=== PATIENT | female | born 1940 | race Caucasian/White ===

== ENCOUNTER 2018-05-16 19:10 | Emergency (ER) | payer MEDICARE, OTHER ==
[2018-05-16 19:58] VITALS: BP 167/72
--- NOTE | 2018-05-16 20:10 | EDM.PDOC ---
ED HPI GENERAL MEDICAL PROBLEM - General Chief Complaint: Abdominal Pain Stated Complaint: R SIDE ABD PAIN Time Seen by Provider: 05/16/18 19:25 Source of Information: Reports: Patient, Family History Limitations: Reports: No Limitations - History of Present Illness INITIAL COMMENTS - FREE TEXT/NARRATIVE: Patient presents with complaints of RLQ pain. Describes as a dull ache like "twinges of pain every now and then". Patient has had the pain for about 4 hours now. No nausea or vomiting. No fevers that she is aware of. Was able to eat today. Has had 2 normal BMs today. No blood in stool. No urinary complaints. Was in for blood work this am for her diabetes, had a panel 8 and A1C. Had travelled to [place] and [place] after that and had felt fine but this afternoon, had these mild episodes of pain and was worried about her appendix. Onset: Today, Gradual Duration: Day(s): Location: Reports: Abdomen Quality: Reports: Ache, Dull Severity: Mild Improves with: Reports: None Associated Symptoms: Reports: Nausea/Vomiting. Denies: Chest Pain, Cough, Fever /Chills, Loss of Appetite, Shortness of Breath, Syncope, Weakness Right Abdomen Pain Score (Numeric/FACES): 3 - Related Data Allergies Allergy/AdvReac Type Severity Reaction Status Date / Time aspirin Allergy Unknown Other Verified 05/16/18 19:58 Penicillins Allergy rapid Verified 05/16/18 19:58 heart rate Home Meds: Home Meds Aspirin [Mini Chewable Aspirin] 81 mg PO DAILY 07/24/13 [History] Cholecalciferol (Vitamin D3) [D3-2000] 2,000 unit PO DAILY 07/24/13 [History] Diltiazem HCl [Diltiazem 24Hr ER] 2 cap PO ACBREAKFAST 07/24/13 [History] Furosemide [Lasix] 40 mg PO DAILY 07/24/13 [History] Levothyroxine Sodium [Synthroid] 100 mcg PO DAILY 07/24/13 [History] atorvaSTATin [Lipitor] 80 mg PO DAILY 07/24/13 [History] metFORMIN HCl [Metformin HCl] 500 mg PO BID 07/24/13 [History] Pantoprazole [Protonix] 40 mg PO DAILY #30 tab.cr 07/26/13 [Rx] Multivit-Min/FA/Lycopene/Lut [Centrum Silver] 1 each PO DAILY 12/06/13 [History] Brimonidine Tartrate [Alphagan P 0.1% Ophth Soln] 1 drop EYEBOTH DAILY 05/04/16 [History] Digoxin 125 mcg PO DAILY 05/04/16 [History] Enalapril [Vasotec] 5 mg PO DAILY 05/04/16 [History] Ketorolac [Acular 0.5% Ophth Soln] 1 drop EYELF ASDIRECTED 05/04/16 [History] Moxifloxacin [Vigamox 0.5% Ophth Soln] 1 drop EYELF ASDIRECTED 05/04/16 [History ] Nitroglycerin [IJP: Nitroglycerin] 1 tab SL ASDIRECTED PRN 05/04/16 [History] prednisoLONE Acetate [Pred Forte 1% Ophth Susp] 1 drop EYELF ASDIRECTED [History] Past Medical History HEENT History: Reports: Cataract, Glaucoma Cardiovascular History: Reports: Angina, Bypass, High Cholesterol, Hypertension , Other (See Below) Other Cardiovascular History: SVT SUPRAVENTICULAR TACHYCARDIA Respiratory History: Reports: None Genitourinary History: Reports: Other (See Below) Other Genitourinary History: URINARY FREQUENCY Musculoskeletal History: Reports: Arthritis, Other (See Below) Other Musculoskeletal History: BURSITIS OF HAND LEFT & RIGHT, KNEE BILAT Psychiatric History: Reports: None Endocrine/Metabolic History: Reports: Diabetes, Type II, Hypothyroidism, Osteopenia, Vitamin D Deficiency Hematologic History: Reports: None Immunologic History: Reports: None Oncologic (Cancer) History: Reports: None Dermatologic History: Reports: None - Infectious Disease History Infectious Disease History: Reports: Chicken Pox, Measles, Mumps, Shingles, Other (See Below) Other Infectious Disease History: PINK EYE - Past Surgical History HEENT Surgical History: Reports: Cataract Surgery Social & Family History - Family History HEENT: Reports: None Cardiac: Reports: None Respiratory: Reports: COPD, Sleep Apnea GI: Reports: Other (See Below) Other GI Family History: LIVER FAILURE : Reports: None OBGYN: Reports: Musculoskeletal: Reports: Arthritis Neurological: Reports: None Psychiatric: Reports: None Endocrine/Metabolic: Reports: None Hematologic: Reports: None Immunologic: Reports: None Dermatologic: Reports: None Oncologic: Reports: Colon, Esophageal, Liver - Caffeine Use Caffeine Use: Reports: Coffee Caffeine Use Comment: AVERAGES 2-3 ED ROS GENERAL - Review of Systems Review Of Systems: See Below Constitutional: Denies: Fever, Chills, Malaise, Weakness, Decreased Appetite HEENT: Reports: No Symptoms Respiratory: Denies: Shortness of Breath, Cough Cardiovascular: Denies: Chest Pain, Edema, Lightheadedness Endocrine: Denies: Fatigue GI/Abdominal: Reports: Abdominal Pain, Nausea. Denies: Constipation, Diarrhea, Decreased Appetite, Vomiting : Reports: No Symptoms Musculoskeletal: Reports: No Symptoms Skin: Reports: No Symptoms Neurological: Reports: No Symptoms ED EXAM, GI/ABD - Physical Exam Exam: See Below Exam Limited By: No Limitations General Appearance: Alert, WD/WN, No Apparent Distress Ears: Normal External Exam, Normal TMs Nose: Normal Inspection, Normal Mucosa, No Blood Throat/Mouth: Normal Inspection, Normal Oropharynx Head: Normocephalic Neck: Normal Inspection, Supple, Non-Tender Respiratory/Chest: No Respiratory Distress, Lungs Clear, Normal Breath Sounds Cardiovascular: Regular Rate, Rhythm, No Edema GI/Abdominal Exam: Normal Bowel Sounds, Soft, Tender (RLQ) Extremities: Normal Inspection Neurological: Alert, Oriented Skin Exam: Warm, Dry Course - Vital Signs Last Recorded V/S: Last Vital Signs Temp 99.1 F 05/16/18 19:55 Pulse 69 05/16/18 19:55 Resp 18 05/16/18 19:55 BP 167/72 H 05/16/18 19:55 Pulse Ox 97 05/16/18 19:55 - Orders/Labs/Meds Orders: Active Orders 24 hr Category Date Time Status Abdomen 2V AP Flat Upright [CR] Routine Exams 05/16/18 20:12 Taken CULTURE URINE [RM] Stat Lab 05/16/18 20:35 Ordered Labs: Laboratory Tests 05/16/18 05/16/18 05/16/18 Range/Units 19:55 19:55 19:55 WBC 9.8 (5.0-10.0) 10^3/uL RBC 3.82 L (4.00-5.50) 10^6/uL Hgb 11.6 L (12.0-16.0) g/dL Hct 35.8 L (37.0-47.0) % MCV 93.7 (82.0-94.0) fL MCH 30.4 (27.0-32.0) pg MCHC 32.4 L (33.0-38.0) g/dL RDW Coeff of Jeff 13.5 (11.0-15.0) % Plt Count 269 (150-400) 10^3/uL Neut % (Auto) 64.4 (35-85) % Lymph % (Auto) 25.4 (10-55) % [place] % (Auto) 8.1 (0-16) % Eos % (Auto) 1.7 (0-5) % Baso % (Auto) 0.4 (0-3) % Neut # (Auto) 6.29 (1.80-7.00) 10^3/uL Lymph # (Auto) 2.48 (1.00-4.80) 10^3/uL [place] # (Auto) 0.79 (0.00-0.80) 10^3/uL Eos # (Auto) 0.17 (0.00-0.45) 10^3/uL Baso # (Auto) 0.04 10^3/uL Sodium 140 (136-145) mEq/L Potassium 4.4 (3.5-5.0) mEq/L Chloride 102 (98-106) mEq/L Carbon Dioxide 31 (21-32) mmol/L BUN 31 H (7-18) mg/dL Creatinine 2.1 H (0.6-1.0) mg/dL Est Cr Clr Drug Dosing 16.11 mL/min Estimated GFR (MDRD) 23 L (>=60) mL/min Glucose 214 H (75-99) mg/dL Calcium 9.4 (8.4-10.1) mg/dL Total Bilirubin 0.2 (0.0-1.0) mg/dL AST 14 L (15-37) U/L ALT 23 (12-78) U/L Alkaline Phosphatase 106 (46-116) U/L C-Reactive Protein 1.3 H (0.2-0.8) mg/dL Total Protein 7.1 (6.4-8.2) g/dL Albumin 3.5 (3.4-5.0) g/dL Amylase 26 (25-115) U/L Urine Color (YELLOW) Urine Appearance (CLEAR) Urine pH (4.5-8.0) Ur Specific [place] (1.003-1.020) Urine Protein (NEGATIVE) mg/dL Urine Glucose (UA) (NEGATIVE) mg/dL Urine Ketones (NEGATIVE) mg/dL Urine Occult Blood (NEGATIVE) Urine Nitrite (NEGATIVE) Urine Bilirubin (NEGATIVE) Urine Urobilinogen (0.2-1.0) EU/dL Ur Leukocyte Esterase (NEGATIVE) Urine RBC (0-5) /HPF Urine WBC (0-5) /HPF Ur Squamous Epith Cells (NOT SEEN) /HPF Urine Bacteria (NOT SEEN) /HPF 05/16/18 Range/Units 20:05 WBC (5.0-10.0) 10^3/uL RBC (4.00-5.50) 10^6/uL Hgb (12.0-16.0) g/dL Hct (37.0-47.0) % MCV (82.0-94.0) fL MCH (27.0-32.0) pg MCHC (33.0-38.0) g/dL RDW Coeff of Jeff (11.0-15.0) % Plt Count (150-400) 10^3/uL Neut % (Auto) (35-85) % Lymph % (Auto) (10-55) % [place] % (Auto) (0-16) % Eos % (Auto) (0-5) % Baso % (Auto) (0-3) % Neut # (Auto) (1.80-7.00) 10^3/uL Lymph # (Auto) (1.00-4.80) 10^3/uL [place] # (Auto) (0.00-0.80) 10^3/uL Eos # (Auto) (0.00-0.45) 10^3/uL Baso # (Auto) 10^3/uL Sodium (136-145) mEq/L Potassium (3.5-5.0) mEq/L Chloride (98-106) mEq/L Carbon Dioxide (21-32) mmol/L BUN (7-18) mg/dL Creatinine (0.6-1.0) mg/dL Est Cr Clr Drug Dosing mL/min Estimated GFR (MDRD) (>=60) mL/min Glucose (75-99) mg/dL Calcium (8.4-10.1) mg/dL Total Bilirubin (0.0-1.0) mg/dL AST (15-37) U/L ALT (12-78) U/L Alkaline Phosphatase (46-116) U/L C-Reactive Protein (0.2-0.8) mg/dL Total Protein (6.4-8.2) g/dL Albumin (3.4-5.0) g/dL Amylase (25-115) U/L Urine Color Light yellow (YELLOW) Urine Appearance Clear (CLEAR) Urine pH 8.5 H (4.5-8.0) Ur Specific [place] 1.015 (1.003-1.020) Urine Protein 30 H (NEGATIVE) mg/dL Urine Glucose (UA) Negative (NEGATIVE) mg/dL Urine Ketones Negative (NEGATIVE) mg/dL Urine Occult Blood Trace-intact H (NEGATIVE) Urine Nitrite Negative (NEGATIVE) Urine Bilirubin Negative (NEGATIVE) Urine Urobilinogen 0.2 (0.2-1.0) EU/dL Ur Leukocyte Esterase Trace H (NEGATIVE) Urine RBC 0-5 (0-5) /HPF Urine WBC 5-10 H (0-5) /HPF Ur Squamous Epith Cells Few H (NOT SEEN) /HPF Urine Bacteria Few H (NOT SEEN) /HPF - Re-Assessments/Exams Free Text/Narrative Re-Assessment/Exam: 05/16/18 Lab tests show normal WBC. Mild elevation of CRP at 1.2. Creatinine 2.1, normal 1.8. UA does show few bacteria, no urinary symptoms. Will culture urine and determine tomorrow if treatment is needed. She does have moderate stool in the right colon. Pain at a minimum right now. Discussed need to push fluids, take colace tonight. Return if pain worsens or if she starts running a fever, gets nauseated, etc. Her and her agree to plan Departure - Departure Time of Disposition: 20:41 Disposition: Home, Self-Care 01 Condition: Fair Clinical Impression: Abdominal pain Qualifiers: Abdominal location: right lower quadrant Qualified Code(s): R10.31 - Right lower quadrant pain - Discharge Information *PRESCRIPTION DRUG MONITORING PROGRAM REVIEWED*: No *COPY OF PRESCRIPTION DRUG MONITORING REPORT IN PATIENT LADI: No Referrals: Jenna Winkler ENGINEERING LAB TECHNICIAN [Primary Care Provider] - Forms: ED Department Discharge Additional Instructions: 1. Push fluids 2. Stool softener tonight 3. Return if develop fever, increased pain, nausea or vomiting. 4. We will call you if concerns with the urine culture and if treated needed for a urinary tract infection 5. Call with any questions or concerns. - My Orders Last 24 Hours: My Active Orders 05/16/18 20:12 Abdomen 2V AP Flat Upright [CR] Routine 05/16/18 20:35 CULTURE URINE [RM] Stat - Assessment/Plan Last 24 Hours: My Active Orders 05/16/18 20:12 Abdomen 2V AP Flat Upright [CR] Routine 05/16/18 20:35 CULTURE URINE [RM] Stat
== END 2018-05-16 21:00 | disposition home or self-care (01) ==
LOC: CC.ED 19:10
DX: R10.31 Right lower quadrant pain (principal); I25.10 Atherosclerotic heart disease of native coronary artery without angina pectoris; I10 Essential (primary) hypertension; E78.00 Pure hypercholesterolemia, unspecified; E11.9 Type 2 diabetes mellitus without complications; E03.9 Hypothyroidism, unspecified; R79.89 Other specified abnormal findings of blood chemistry; Z88.8 Allergy status to other drugs, medicaments and biological substances; Z88.0 Allergy status to penicillin; Z79.899 Other long term (current) drug therapy; Z79.84 Long term (current) use of oral hypoglycemic drugs; Z87.891 Personal history of nicotine dependence
CPT/HCPCS: 36415; 74019; 80053; 81001; 82150; 85025; 86140; 87086; 99284

== ENCOUNTER 2019-11-10 19:03 | Observation (INO) | payer MEDICARE, OTHER ==
[2019-11-10] MEDS ORDERED: Ondansetron 4 MG/2 ML SDV IVPUSH STA (19:11)
--- NOTE | 2019-11-10 19:17 | EDM.PDOC ---
ED HPI GENERAL MEDICAL PROBLEM - General Chief Complaint: Gastrointestinal Problem Stated Complaint: nausea/vomiting Time Seen by Provider: 11/10/19 19:09 Source of Information: Reports: Patient History Limitations: Reports: No Limitations - History of Present Illness INITIAL COMMENTS - FREE TEXT/NARRATIVE: This patient is a 79 year old female that presents to the ER. Patient reports started today at noon after eating having upper abdominal pain, nausea, vomiting , and dizziness with positional changes. Patient reports that she has vomited 8x today. Patient reports she has also been generally weak since vomiting today. Patient is alert and oriented. She denies vomiting blood or blood in bowels. Onset: Today Onset Date: 11/10/19 Onset Time: 12:00 Duration: Hour(s): (7) Location: Reports: Abdomen Quality: Reports: Ache Severity: Moderate Improves with: Reports: None Worsens with: Reports: None Associated Symptoms: Reports: Loss of Appetite, Nausea/Vomiting, Weakness ( general). Denies: Confusion, Chest Pain, Cough, cough w sputum, Diaphoresis, Fever/Chills, Headaches, Malaise, Rash, Seizure, Shortness of Breath, Syncope - Related Data Allergies Allergy/AdvReac Type Severity Reaction Status Date / Time aspirin Allergy Unknown Other Verified 11/10/19 19:11 Penicillins Allergy rapid Verified 11/10/19 19:11 heart rate Home Meds: Home Meds Aspirin [Mini Chewable Aspirin] 81 mg PO DAILY 07/24/13 [History] Cholecalciferol (Vitamin D3) [D3-2000] 2,000 unit PO DAILY 07/24/13 [History] Furosemide [Lasix] 40 mg PO DAILY 07/24/13 [History] Levothyroxine Sodium [Synthroid] 100 mcg PO DAILY 07/24/13 [History] atorvaSTATin [Lipitor] 80 mg PO BEDTIME 07/24/13 [History] dilTIAZem HCl [Diltiazem 24Hr ER (Cd)] 180 mg PO BID 07/24/13 [History] Multivit-Min/FA/Lycopene/Lut [Centrum Silver] 1 each PO DAILY 12/06/13 [History] Brimonidine Tartrate [Alphagan P 0.1% Ophth Soln] 1 drop EYEBOTH BID 05/04/16 [ History] Digoxin 125 mcg PO DAILY 05/04/16 [History] Enalapril [Vasotec] 5 mg PO BEDTIME 05/04/16 [History] Ketorolac [Acular 0.5% Ophth Soln] 1 drop EYELF ASDIRECTED 05/04/16 [History] Moxifloxacin [Vigamox 0.5% Ophth Soln] 1 drop EYELF BID 05/04/16 [History] Nitroglycerin [IJP: Nitroglycerin] 1 tab SL ASDIRECTED PRN 05/04/16 [History] prednisoLONE Acetate [Pred Forte 1% Ophth Susp] 1 drop EYELF BID 05/04/16 [ History] SitaGLIPtin [Januvia] 100 mg PO BEDTIME 11/10/19 [History] Past Medical History HEENT History: Reports: Cataract, Glaucoma Cardiovascular History: Reports: Angina, Bypass, High Cholesterol, Hypertension , Other (See Below) Other Cardiovascular History: SVT SUPRAVENTICULAR TACHYCARDIA Respiratory History: Reports: None Genitourinary History: Reports: Other (See Below) Other Genitourinary History: URINARY FREQUENCY Musculoskeletal History: Reports: Arthritis, Other (See Below) Other Musculoskeletal History: BURSITIS OF HAND LEFT & RIGHT, KNEE BILAT Psychiatric History: Reports: None Endocrine/Metabolic History: Reports: Diabetes, Type II, Hypothyroidism, Osteopenia, Vitamin D Deficiency Hematologic History: Reports: None Immunologic History: Reports: None Oncologic (Cancer) History: Reports: None Dermatologic History: Reports: None - Infectious Disease History Infectious Disease History: Reports: Chicken Pox, Measles, Mumps, Shingles, Other (See Below) Other Infectious Disease History: PINK EYE - Past Surgical History HEENT Surgical History: Reports: Cataract Surgery Social & Family History - Family History HEENT: Reports: None Cardiac: Reports: None Respiratory: Reports: COPD, Sleep Apnea GI: Reports: Other (See Below) Other GI Family History: LIVER FAILURE : Reports: None OBGYN: Reports: Musculoskeletal: Reports: Arthritis Neurological: Reports: None Psychiatric: Reports: None Endocrine/Metabolic: Reports: None Hematologic: Reports: None Immunologic: Reports: None Dermatologic: Reports: None Oncologic: Reports: Colon, Esophageal, Liver - Caffeine Use Caffeine Use: Reports: Coffee Caffeine Use Comment: AVERAGES 2-3 ED ROS GENERAL - Review of Systems Review Of Systems: See Below Constitutional: Reports: Weakness (general). Denies: Fever, Chills HEENT: Reports: No Symptoms Respiratory: Reports: No Symptoms Cardiovascular: Reports: Lightheadedness. Denies: Chest Pain, Dyspnea on Exertion, Edema, Palpitations, Syncope Endocrine: Reports: No Symptoms GI/Abdominal: Reports: Abdominal Pain, Nausea, Vomiting. Denies: Diarrhea : Reports: No Symptoms Musculoskeletal: Reports: No Symptoms Skin: Reports: No Symptoms Neurological: Reports: No Symptoms. Denies: Headache, Syncope Psychiatric: Reports: No Symptoms Hematologic/Lymphatic: Reports: No Symptoms Immunologic: Reports: No Symptoms ED EXAM, GI/ABD - Physical Exam Exam: See Below Exam Limited By: No Limitations General Appearance: Alert, WD/WN, No Apparent Distress Eyes: Bilateral: Normal Appearance Ears: Normal External Exam, Normal Canal, Hearing Grossly Normal, Normal TMs Nose: Normal Inspection, Normal Mucosa, No Blood Throat/Mouth: Normal Inspection, Normal Lips, Normal Teeth, Normal Gums, Normal Oropharynx, Normal Voice, No Airway Compromise Head: Atraumatic, Normocephalic Neck: Normal Inspection, Supple, Non-Tender, Full Range of Motion Respiratory/Chest: No Respiratory Distress, Lungs Clear, Normal Breath Sounds, No Accessory Muscle Use, Chest Non-Tender Cardiovascular: Normal Peripheral Pulses, Irregularly Irregular GI/Abdominal Exam: Normal Bowel Sounds, Soft, No Organomegaly, No Distention, No Abnormal Bruit, No Mass, Pelvis Stable, Tender (RUQ, LUQ, Epigastric) Back Exam: Normal Inspection, Full Range of Motion. No: CVA Tenderness (L), CVA Tenderness (R) Extremities: Normal Inspection, Normal Capillary Refill, Pedal Edema (+1 BLE. Hx CHF.) Neurological: Alert, Oriented, Normal Cognition Psychiatric: Normal Affect, Normal Mood Skin Exam: Warm, Dry, Intact, Normal Color, No Rash Lymphatic: No Adenopathy EKG INTERPRETATION EKG Date: 11/10/19 Time: 19:35 Rhythm: A-Fib Rate (Beats/Min): 72 ST-T: Normal Course - Vital Signs Last Recorded V/S: Last Vital Signs Temp 97.6 F 11/11/19 07:57 Pulse 76 11/11/19 07:57 Resp 18 11/11/19 07:57 BP 151/59 H 11/11/19 09:41 Pulse Ox 97 11/11/19 07:57 Orthostatic Blood Pressure [ 153/81 Standing] Orthostatic Blood Pressure [ 165/66 Sitting] Orthostatic Blood Pressure [ 145/61 Supine] - Orders/Labs/Meds Labs: Laboratory Tests 11/10/19 11/10/19 11/10/19 Range/Units 19:15 19:15 20:05 WBC 14.0 H (5.0-10.0) 10^3/uL RBC 4.16 (4.00-5.50) 10^6/uL Hgb 13.2 (12.0-16.0) g/dL Hct 39.7 (37.0-47.0) % MCV 95.4 H (82.0-94.0) fL MCH 31.7 (27.0-32.0) pg MCHC 33.2 (33.0-38.0) g/dL RDW Coeff of Jeff 13.5 (11.0-15.0) % Plt Count 271 (150-400) 10^3/uL Neut % (Auto) 78.8 (35-85) % Lymph % (Auto) 13.5 (10-55) % [place] % (Auto) 6.8 (0-16) % Eos % (Auto) 0.6 (0-5) % Baso % (Auto) 0.3 (0-3) % Neut # (Auto) 11.06 H (1.80-7.00) 10^3/uL Lymph # (Auto) 1.89 (1.00-4.80) 10^3/uL [place] # (Auto) 0.96 H (0.00-0.80) 10^3/uL Eos # (Auto) 0.09 (0.00-0.45) 10^3/uL Baso # (Auto) 0.04 10^3/uL Sodium 138 (136-145) mEq/L Potassium 4.0 (3.5-5.0) mEq/L Chloride 97 L (98-106) mEq/L Carbon Dioxide 29 (21-32) mmol/L BUN 34 H (7-18) mg/dL Creatinine 1.9 H (0.6-1.0) mg/dL Est Cr Clr Drug Dosing 17.24 mL/min Estimated GFR (MDRD) 26 L (>=60) mL/min Glucose 248 H (75-99) mg/dL Calcium 10.0 (8.4-10.1) mg/dL Total Bilirubin 0.3 (0.0-1.0) mg/dL AST 12 L (15-37) U/L ALT 20 (12-78) U/L Alkaline Phosphatase 98 (46-116) U/L Lactate Dehydrogenase 175 (100-190) U/L Creatine Kinase 40 (21-215) U/L Troponin I < 0.017 (0.00-0.06) ng/mL C-Reactive Protein 2.4 H (0.2-0.8) mg/dL NT-Pro-B Natriuret Pep 3774 H (0-1000) pg/mL Total Protein 7.8 (6.4-8.2) g/dL Albumin 3.5 (3.4-5.0) g/dL Amylase 25 (25-115) U/L Lipase 104 (73-393) U/L Urine Color Light yellow (YELLOW) Urine Appearance Slightly cloudy (CLEAR) Urine pH 7.0 (4.5-8.0) Ur Specific [place] >= 1.030 H (1.003-1.020) Urine Protein >=300 H (NEGATIVE) mg/dL Urine Glucose (UA) 100 H (NEGATIVE) mg/dL Urine Ketones Negative (NEGATIVE) mg/dL Urine Occult Blood Trace-intact H (NEGATIVE) Urine Nitrite Negative (NEGATIVE) Urine Bilirubin Negative (NEGATIVE) Urine Urobilinogen 0.2 (0.2-1.0) EU/dL Ur Leukocyte Esterase Negative (NEGATIVE) Urine RBC 0-5 (0-5) /HPF Urine WBC 0-5 (0-5) /HPF Ur Epithelial Cells Moderate H (NOT SEEN) /HPF Urine Bacteria Occasional H (NOT SEEN) /HPF Urine Mucus Few H (NOT SEEN) /HPF Meds: Medications Discontinued Medications Generic Name Dose Route Start Last Admin Trade Name Freq PRN Reason Stop Dose Admin Aspirin 81 mg 11/11/19 08:15 11/11/19 08:55 Halfprin PO 81 mg DAILY [facility] Administration Cholecalciferol 50 mcg 11/11/19 08:15 11/11/19 08:55 Vitamin D3 PO 50 mcg DAILY KAI Administration Digoxin 125 mcg 11/11/19 12:00 Lanoxin PO DAILY@1200 [facility] Enalapril Maleate 5 mg 11/11/19 08:00 11/11/19 09:41 Vasotec PO 5 mg DAILY KAI Administration Enoxaparin Sodium 30 mg 11/10/19 21:49 11/10/19 22:19 Lovenox SUBCUT 30 mg BEDTIME KAI Administration Furosemide 40 mg 11/11/19 08:00 11/11/19 09:41 Lasix PO 40 mg DAILY KAI Administration Sodium Chloride 500 mls @ 1,000 mls/hr 11/10/19 19:15 11/10/19 21:56 Normal Saline IV 75 mls/hr .BOLUS KAI Administration Sodium Chloride 500 mls @ 75 mls/hr 11/10/19 21:49 Normal Saline IV 11/11/19 04:00 ASDIRECTED KAI Levothyroxine Sodium 100 mcg 11/11/19 08:00 11/11/19 09:41 Synthroid PO 100 mcg DAILY KAI Administration Nitroglycerin 0.4 mg 11/10/19 21:49 Nitrostat SL ASDIRECTED PRN ANGINA Atorvastatin [ 80 mg 11/11/19 08:00 11/11/19 09:41 Lipitor] 80 MgPt PO 80 mg Own DAILY KAI Administration Non-Formulary Medication 1 drop 11/11/19 08:00 Brimonidine Tartrate [Alphagan P 0.1% Ophth Soln] EYEBOTH BID KAI Diltiazem 180mg Xr 2 each 11/11/19 07:00 11/11/19 09:41 PO 2 each ACBREAKFAST KAI Administration Non-Formulary Medication 1 drop 11/10/19 21:49 Ketorolac EYELF ASDIRECTED KAI Non-Formulary Medication 1 drop 11/11/19 08:00 Moxifloxacin [Vigamox 0.5% Ophth Soln] EYELF BID KAI Non-Formulary Medication 1 each 11/11/19 08:00 Multivit-Min/Fa/Lycopene/Lut [Centrum Silver] PO DAILY KAI Non-Formulary Medication 40 mg 11/11/19 08:00 Pantoprazole [Protonix] PO DAILY KAI Non-Formulary Medication 1 drop 11/11/19 08:00 Prednisolone Acetate [Pred Forte 1% Ophth Susp] EYELF BID KAI Sitagliptin 100 Mg 100 mg 11/11/19 08:00 11/11/19 09:41 Pt Own PO 100 mg DAILY KAI Administration Ondansetron HCl 4 mg 11/10/19 19:11 11/10/19 19:20 Zofran IVPUSH 11/10/19 19:12 4 mg NOW STA Administration Ondansetron HCl 4 mg 11/10/19 20:36 11/10/19 20:41 Zofran IVPUSH 4 mg STAT PRN Administration Nausea Ondansetron HCl 4 mg 11/10/19 21:49 Zofran IV Q6H PRN Nausea/Vomiting Pantoprazole Sodium 40 mg 11/10/19 21:49 11/10/19 22:19 Protonix Iv IVPUSH 11/10/19 21:50 40 mg ONETIME ONE Administration - Radiology Interpretation Free Text/Narrative:: CT: Abd/Pelvis CT without contrast: No clear etiology for abdominal pain or leukocytosis. CT Results Date: 11/10/19 CT Results Time: 20:33 - Re-Assessments/Exams Free Text/Narrative Re-Assessment/Exam: 11/10/19 21:07 The patient does have mild leukocytosis, possibly viral etiology and with her vomiting. She has no fever, and unremarkable ct scan. She is dehydrated, especially with dizziness with positional changes and during orthostatics. Will admit observation, repeat labs tomorrow to ensure no significant increase in her wbc, or drop in hgb. Departure - Departure Time of Disposition: 21:09 Disposition: DC/Tfer to Acute Hospital 02 Condition: Fair Clinical Impression: Dizziness, Viral enteritis, Renal insufficiency - Discharge Information *PRESCRIPTION DRUG MONITORING PROGRAM REVIEWED*: Not Applicable *COPY OF PRESCRIPTION DRUG MONITORING REPORT IN PATIENT LADI: Not Applicable Sepsis Event Note - Focused Exam Date Exam was Performed: 11/12/19 Time Exam was Performed: 01:16 - Assessment/Plan Plan: PLEASE SEE RN NOTE FOR PFSH. PLEASE USE ER H&P ADMIT H&P
[2019-11-10] MEDS: Sodium Chloride 0.9% 500 ML IV SCH ×2 (19:21→21:56)
[2019-11-10 19:43] LABS: CHLORIDE,CL 97 mEq/L (98-106); SODIUM,NA 138 mEq/L (136-145)
[2019-11-10] MEDS ORDERED: Ondansetron 4 MG/2 ML SDV IVPUSH PRN (20:36)
[2019-11-10] MEDS ORDERED: Nitroglycerin 0.4 MG Tab.SL SL PRN (21:49)
[2019-11-10] MEDS ORDERED: KETOROLAC EYELF SCH (21:49)
[2019-11-10] MEDS ORDERED: Ondansetron 4 MG/2 ML SDV IV PRN (21:49)
[2019-11-10] MEDS ORDERED: Pantoprazole 40 MG Vial IVPUSH ONE (21:49)
[2019-11-10] MEDS ORDERED: Sodium Chloride 0.9% 500 ML IV SCH (21:49)
[2019-11-10] MEDS ORDERED: Enoxaparin 30 MG/0.3 ML Syringe SUBCUT SCH (21:49)
[2019-11-11] MEDS ORDERED: DILTIAZEM 180 MG PO SCH (07:00)
[2019-11-11 07:59] VITALS: BP 151/59; PULSE 76
[2019-11-11] MEDS ORDERED: ATORVASTATIN 80 MG PO SCH (08:00)
[2019-11-11] MEDS ORDERED: [UNRECOGNIZED DRUG - OTHER] PO SCH (08:00)
[2019-11-11] MEDS ORDERED: Non-Formulary Medication 1 Each (Moxifloxacin [Vigamox 0.5% Ophth Soln] 1 DROP) EYELF SCH (08:00)
[2019-11-11] MEDS ORDERED: LYCOPENE PO SCH (08:00)
[2019-11-11] MEDS ORDERED: LUT PO SCH (08:00)
[2019-11-11] MEDS ORDERED: Non-Formulary Medication 1 Each (Pantoprazole [Protonix***] 40 MG) PO SCH (08:00)
[2019-11-11] MEDS ORDERED: ENALAPRIL 5 MG PO SCH (08:00)
[2019-11-11] MEDS ORDERED: Furosemide 40 MG Tab**PT OWN PO SCH (08:00)
[2019-11-11] MEDS ORDERED: MULTIVIT MIN PO SCH (08:00)
[2019-11-11] MEDS ORDERED: BRIMONIDINE TARTRATE EYEBOTH SCH (08:00)
[2019-11-11] MEDS ORDERED: SITAGLIPTIN 100 MG PO SCH (08:00)
[2019-11-11] MEDS ORDERED: Levothyroxine 100 MCG Tab**PT OWN PO SCH (08:00)
[2019-11-11] MEDS ORDERED: PREDNISOLONE ACETATE EYELF SCH (08:00)
[2019-11-11] MEDS ORDERED: Cholecalciferol (Vitamin D3) 25 MCG Tab PO SCH (08:15)
[2019-11-11] MEDS ORDERED: Aspirin 81 MG Tab.EC PO SCH (08:15)
--- NOTE | 2019-11-11 08:56 | PCM.DCSUM1 ---
Discharge Summary - Hospital Course HPI Initial Comments: This patient was admitted last night with enteritis and dehydration. Today this patient reports that she has her energy back, no longer dizzy. She reports that she has not had any nausea or vomiting today. She reports that she feels much better and is ready to go home. Her CR is 1.8, consistent with baseline. Her WBC is down to 10, and her CRP as decreased. I will discharge this patient home. - Discharge Data Discharge Date: 11/11/19 Discharge Disposition: Home, Self-Care 01 Condition: Stable - Referral to Home Health Primary Care Physician: Jenna Winkler NP - Patient Instructions Diet: Usual Diet as Tolerated Activity: As Tolerated Driving: Do Not Drive Notify Provider of: Fever, Increased Pain, Nausea and/or Vomiting Other/Special Instructions: Followup with primary care provider in 3-5 days for recheck and med reconcile. Return as needed for worsening of condition or emergent concerns. Zofran 4mg under the tongue every 6 hours as needed for nausea or vomiting #30 no refill - Discharge Plan *PRESCRIPTION DRUG MONITORING PROGRAM REVIEWED*: Not Applicable *COPY OF PRESCRIPTION DRUG MONITORING REPORT IN PATIENT LADI: Not Applicable Home Medications: Home Meds Aspirin [Mini Chewable Aspirin] 81 mg PO DAILY 07/24/13 [History] Cholecalciferol (Vitamin D3) [D3-2000] 2,000 unit PO DAILY 07/24/13 [History] Furosemide [Lasix] 40 mg PO DAILY 07/24/13 [History] Levothyroxine Sodium [Synthroid] 100 mcg PO DAILY 07/24/13 [History] atorvaSTATin [Lipitor] 80 mg PO DAILY 07/24/13 [History] dilTIAZem HCl [Diltiazem 24Hr ER (Cd)] 2 cap PO ACBREAKFAST 07/24/13 [History] Pantoprazole [ProTONIX] 40 mg PO DAILY #30 tab.cr 07/26/13 [Rx] Multivit-Min/FA/Lycopene/Lut [Centrum Silver] 1 each PO DAILY 12/06/13 [History] Brimonidine Tartrate [Alphagan P 0.1% Ophth Soln] 1 drop EYEBOTH BID 05/04/16 [ History] Digoxin 125 mcg PO DAILY 05/04/16 [History] Enalapril [Vasotec] 5 mg PO DAILY 05/04/16 [History] Ketorolac [Acular 0.5% Ophth Soln] 1 drop EYELF ASDIRECTED 05/04/16 [History] Moxifloxacin [Vigamox 0.5% Ophth Soln] 1 drop EYELF BID 05/04/16 [History] Nitroglycerin [IJP: Nitroglycerin] 1 tab SL ASDIRECTED PRN 05/04/16 [History] prednisoLONE Acetate [Pred Forte 1% Ophth Susp] 1 drop EYELF BID 05/04/16 [ History] SitaGLIPtin [Januvia] 100 mg PO DAILY 11/10/19 [History] Patient Handouts: Viral Gastroenteritis, Adult, Slfj-go-[id number], Dizziness, Easy- to-Read Forms: ED Department Discharge Referrals: Jenna Winkler COMPOUND SPECIALIST [Primary Care Provider] - - Discharge Summary/Plan Comment DC Time >30 min.: No - General Info Functional Status: Reports: Pain Controlled, Tolerating Diet, Ambulating, Urinating - Review of Systems General: Reports: No Symptoms. Denies: Weakness HEENT: Reports: No Symptoms Pulmonary: Reports: No Symptoms. Denies: Shortness of Breath Cardiovascular: Reports: No Symptoms Gastrointestinal: Reports: No Symptoms. Denies: Abdominal Pain, Diarrhea, Nausea, Vomiting Genitourinary: Reports: No Symptoms Musculoskeletal: Reports: No Symptoms Skin: Reports: No Symptoms Neurological: Reports: No Symptoms. Denies: Dizziness, Headache Psychiatric: Reports: No Symptoms - Patient Data Vitals - Most Recent: Last Vital Signs Temp 97.6 F 11/11/19 07:57 Pulse 76 11/11/19 07:57 Resp 18 11/11/19 07:57 BP 151/59 H 11/11/19 07:57 Pulse Ox 97 11/11/19 07:57 Orthostatic Blood Pressure [ 153/81 Standing] Orthostatic Blood Pressure [ 165/66 Sitting] Orthostatic Blood Pressure [ 145/61 Supine] Weight - Most Recent: 158 lb 1.6 oz I&O - Last 24 hours: Intake & Output 11/10/19 11/11/19 11/11/19 22:59 06:59 14:59 Intake Total 500 Balance 500 Lab Results - Last 24 hrs: Laboratory Results - last 24 hr 11/10/19 11/10/19 11/10/19 Range/Units 19:15 19:15 20:05 WBC 14.0 H (5.0-10.0) 10^3/uL RBC 4.16 (4.00-5.50) 10^6/uL Hgb 13.2 (12.0-16.0) g/dL Hct 39.7 (37.0-47.0) % MCV 95.4 H (82.0-94.0) fL MCH 31.7 (27.0-32.0) pg MCHC 33.2 (33.0-38.0) g/dL RDW Coeff of Jeff 13.5 (11.0-15.0) % Plt Count 271 (150-400) 10^3/uL Neut % (Auto) 78.8 (35-85) % Lymph % (Auto) 13.5 (10-55) % [place] % (Auto) 6.8 (0-16) % Eos % (Auto) 0.6 (0-5) % Baso % (Auto) 0.3 (0-3) % Neut # (Auto) 11.06 H (1.80-7.00) 10^3/uL Lymph # (Auto) 1.89 (1.00-4.80) 10^3/uL [place] # (Auto) 0.96 H (0.00-0.80) 10^3/uL Eos # (Auto) 0.09 (0.00-0.45) 10^3/uL Baso # (Auto) 0.04 10^3/uL Sodium 138 (136-145) mEq/L Potassium 4.0 (3.5-5.0) mEq/L Chloride 97 L (98-106) mEq/L Carbon Dioxide 29 (21-32) mmol/L BUN 34 H (7-18) mg/dL Creatinine 1.9 H (0.6-1.0) mg/dL Est Cr Clr Drug Dosing 17.24 mL/min Estimated GFR (MDRD) 26 L (>=60) mL/min Glucose 248 H (75-99) mg/dL Calcium 10.0 (8.4-10.1) mg/dL Total Bilirubin 0.3 (0.0-1.0) mg/dL AST 12 L (15-37) U/L ALT 20 (12-78) U/L Alkaline Phosphatase 98 (46-116) U/L Lactate Dehydrogenase 175 (100-190) U/L Creatine Kinase 40 (21-215) U/L Troponin I < 0.017 (0.00-0.06) ng/mL C-Reactive Protein 2.4 H (0.2-0.8) mg/dL NT-Pro-B Natriuret Pep 3774 H (0-1000) pg/mL Total Protein 7.8 (6.4-8.2) g/dL Albumin 3.5 (3.4-5.0) g/dL Amylase 25 (25-115) U/L Lipase 104 (73-393) U/L Urine Color Light yellow (YELLOW) Urine Appearance Slightly cloudy (CLEAR) Urine pH 7.0 (4.5-8.0) Ur Specific [place] >= 1.030 H (1.003-1.020) Urine Protein >=300 H (NEGATIVE) mg/dL Urine Glucose (UA) 100 H (NEGATIVE) mg/dL Urine Ketones Negative (NEGATIVE) mg/dL Urine Occult Blood Trace-intact H (NEGATIVE) Urine Nitrite Negative (NEGATIVE) Urine Bilirubin Negative (NEGATIVE) Urine Urobilinogen 0.2 (0.2-1.0) EU/dL Ur Leukocyte Esterase Negative (NEGATIVE) Urine RBC 0-5 (0-5) /HPF Urine WBC 0-5 (0-5) /HPF Ur Epithelial Cells Moderate H (NOT SEEN) /HPF Urine Bacteria Occasional H (NOT SEEN) /HPF Urine Mucus Few H (NOT SEEN) /HPF Digoxin (0.9-2.0) ng/mL 11/11/19 11/11/19 11/11/19 Range/Units 07:15 07:15 07:15 WBC 10.3 H (5.0-10.0) 10^3/uL RBC 3.75 L (4.00-5.50) 10^6/uL Hgb 11.9 L (12.0-16.0) g/dL Hct 36.7 L (37.0-47.0) % MCV 97.9 H (82.0-94.0) fL MCH 31.7 (27.0-32.0) pg MCHC 32.4 L (33.0-38.0) g/dL RDW Coeff of Jeff 13.7 (11.0-15.0) % Plt Count 235 (150-400) 10^3/uL Neut % (Auto) 75.4 (35-85) % Lymph % (Auto) 17.0 (10-55) % [place] % (Auto) 6.6 (0-16) % Eos % (Auto) 0.7 (0-5) % Baso % (Auto) 0.3 (0-3) % Neut # (Auto) 7.78 H (1.80-7.00) 10^3/uL Lymph # (Auto) 1.75 (1.00-4.80) 10^3/uL [place] # (Auto) 0.68 (0.00-0.80) 10^3/uL Eos # (Auto) 0.07 (0.00-0.45) 10^3/uL Baso # (Auto) 0.03 10^3/uL Sodium 140 (136-145) mEq/L Potassium 4.3 (3.5-5.0) mEq/L Chloride 102 (98-106) mEq/L Carbon Dioxide 32 (21-32) mmol/L BUN 29 H (7-18) mg/dL Creatinine 1.8 H (0.6-1.0) mg/dL Est Cr Clr Drug Dosing 18.20 mL/min Estimated GFR (MDRD) 27 L (>=60) mL/min Glucose 145 H D (75-99) mg/dL Calcium 8.7 (8.4-10.1) mg/dL Total Bilirubin (0.0-1.0) mg/dL AST (15-37) U/L ALT (12-78) U/L Alkaline Phosphatase (46-116) U/L Lactate Dehydrogenase (100-190) U/L Creatine Kinase (21-215) U/L Troponin I (0.00-0.06) ng/mL C-Reactive Protein 2.0 H (0.2-0.8) mg/dL NT-Pro-B Natriuret Pep (0-1000) pg/mL Total Protein (6.4-8.2) g/dL Albumin (3.4-5.0) g/dL Amylase (25-115) U/L Lipase (73-393) U/L Urine Color (YELLOW) Urine Appearance (CLEAR) Urine pH (4.5-8.0) Ur Specific [place] (1.003-1.020) Urine Protein (NEGATIVE) mg/dL Urine Glucose (UA) (NEGATIVE) mg/dL Urine Ketones (NEGATIVE) mg/dL Urine Occult Blood (NEGATIVE) Urine Nitrite (NEGATIVE) Urine Bilirubin (NEGATIVE) Urine Urobilinogen (0.2-1.0) EU/dL Ur Leukocyte Esterase (NEGATIVE) Urine RBC (0-5) /HPF Urine WBC (0-5) /HPF Ur Epithelial Cells (NOT SEEN) /HPF Urine Bacteria (NOT SEEN) /HPF Urine Mucus (NOT SEEN) /HPF Digoxin 1.8 (0.9-2.0) ng/mL Med Orders - Current: Current Medications Aspirin (Halfprin) 81 mg PO DAILY [facility] Cholecalciferol (Vitamin D3) 50 mcg PO DAILY [facility] Digoxin (Lanoxin) 125 mcg PO DAILY@1200 KAI Enalapril Maleate (Vasotec) 5 mg PO DAILY [facility] Enoxaparin Sodium (Lovenox) 30 mg SUBCUT BEDTIME KAI Last Admin: 11/10/19 22:19 Dose: 30 mg Furosemide (Lasix) 40 mg PO DAILY [facility] Sodium Chloride (Normal Saline) 500 mls @ 1,000 mls/hr IV .BOLUS [facility] Last Admin: 11/10/19 21:56 Dose: 75 mls/hr Levothyroxine Sodium (Synthroid) 100 mcg PO DAILY [facility] Nitroglycerin (Nitrostat) 0.4 mg SL ASDIRECTED PRN PRN Reason: ANGINA Atorvastatin [ Lipitor] 80 MgPt Own 80 mg PO DAILY [facility] Non-Formulary Medication (Brimonidine Tartrate [Alphagan P 0.1% Oph Soln]) 1 drop EYEBOTH BID [facility] Diltiazem 180mg Xr 2 each PO ACBREAKFAST [facility] Non-Formulary Medication (Ketorolac) 1 drop EYELF ASDIRECTED [facility] Non-Formulary Medication (Moxifloxacin [Vigamox 0.5% Ophth Soln]) 1 drop EYELF BID [facility] Non-Formulary Medication (Multivit-Min/Fa/Lycopene/Lut [Centrum Silver]) 1 each PO DAILY [facility] Non-Formulary Medication (Pantoprazole [Protonix]) 40 mg PO DAILY [facility] Non-Formulary Medication (Prednisolone Acetate [Pred Forte 1% Oph Susp]) 1 drop EYELF BID [facility] Sitagliptin 100 Mg (Pt Own) 100 mg PO DAILY [facility] Ondansetron HCl (Zofran) 4 mg IVPUSH STAT PRN PRN Reason: Nausea Last Admin: 11/10/19 20:41 Dose: 4 mg Ondansetron HCl (Zofran) 4 mg IV Q6H PRN PRN Reason: Nausea/Vomiting Discontinued Medications Sodium Chloride (Normal Saline) 500 mls @ 75 mls/hr IV ASDIRECTED [facility] Stop: 11/11/19 04:00 Ondansetron HCl (Zofran) 4 mg IVPUSH NOW STA Stop: 11/10/19 19:12 Last Admin: 11/10/19 19:20 Dose: 4 mg Pantoprazole Sodium (Protonix Iv) 40 mg IVPUSH ONETIME ONE Stop: 11/10/19 21:50 Last Admin: 11/10/19 22:19 Dose: 40 mg - Exam General: Reports: Alert, Oriented, Cooperative, No Acute Distress HEENT: Reports: Pupils Equal Neck: Reports: Supple Lungs: Reports: Clear to Auscultation, Normal Respiratory Effort GI/Abdominal Exam: Normal Bowel Sounds, Soft, Non-Tender, No Organomegaly, No Distention, No Abnormal Bruit, No Mass, Pelvis Stable Back Exam: Reports: Normal Inspection Extremities: Normal Inspection, Normal Range of Motion, Non-Tender, Normal Capillary Refill, Pedal Edema (+1 BLE, unchanged. ) Skin: Reports: Warm, Dry, Intact Neurological: Reports: No New Focal Deficit Psy/Mental Status: Reports: Alert, Normal Affect, Normal Mood
[2019-11-11] MEDS ORDERED: DIGOXIN 125 MCG PO SCH (12:00)
== END 2019-11-11 10:05 | disposition home or self-care (01) ==
LOC: CC.ED 19:03 → CC.MS 21:13 → UNDOADMOB 21:35 → CC.MS 21:35 → UNDODISOB 11-11 10:05
PROVIDERS: ADMIT Nurse Practitioner; ATTEND Family Medicine
DX: A08.4 Viral intestinal infection, unspecified (principal); N28.9 Disorder of kidney and ureter, unspecified; R42 Dizziness and giddiness; I10 Essential (primary) hypertension; E11.36 Type 2 diabetes mellitus with diabetic cataract; E78.00 Pure hypercholesterolemia, unspecified; Z79.82 Long term (current) use of aspirin; Z79.890 Hormone replacement therapy; Z79.899 Other long term (current) drug therapy; Z79.84 Long term (current) use of oral hypoglycemic drugs; Z88.6 Allergy status to analgesic agent; Z88.0 Allergy status to penicillin
CPT/HCPCS: 36415; 74176; 80048; 80053; 80162; 81001; 82150; 82550; 83615; 83690; 83880; 84484; 85025; 86140; 93005; 96361; 96372; 96374; 96375; 96376; 99217; 99220; 99285-25; A9270-GY; C9113; G0378; J1650; J2405; J7040

== ENCOUNTER 2020-06-18 19:14 | Inpatient (IN) | payer MEDICARE, OTHER ==
[2020-06-18 19:57] LABS: CHLORIDE,CL 100 mEq/L (98-106); SODIUM,NA 138 mEq/L (136-145)
[2020-06-18 20:11] LABS: PTT,PARTIAL THROMBOPLSTIN TIME 30.3 SEC (23.2-32.3)
--- NOTE | 2020-06-18 22:31 | EDM.PDOC ---
ED HPI GENERAL MEDICAL PROBLEM - General Chief Complaint: General Stated Complaint: CP Time Seen by Provider: 06/18/20 19:45 Source of Information: Reports: Patient History Limitations: Reports: No Limitations - History of Present Illness INITIAL COMMENTS - FREE TEXT/NARRATIVE: Kiana is a 79 yo female who presents to the ED via private vehicle, accompanied by her , with initial complaints of chest pain. States the pain has been off and on the last week. States she started developing a cough about 3 days ago and having severe body aches. States the last day she has s tarted to get weak. States she isn't aware of any known exposure to COVID. States her has beens sick longer than her who is being seen in the ED tonight as well. - Related Data Allergies Allergy/AdvReac Type Severity Reaction Status Date / Time aspirin Allergy Unknown Other Verified 06/18/20 20:06 Penicillins Allergy rapid Verified 06/18/20 20:06 heart rate Home Meds: Home Meds Cholecalciferol (Vitamin D3) [D3-2000] 2,000 unit PO DAILY 07/24/13 [History] Furosemide [Lasix] 40 mg PO DAILY 07/24/13 [History] Levothyroxine Sodium [Synthroid] 100 mcg PO DAILY 07/24/13 [History] atorvaSTATin [Lipitor] 80 mg PO BEDTIME 07/24/13 [History] dilTIAZem HCl [Diltiazem 24Hr ER (Cd)] 180 mg PO BID 07/24/13 [History] Multivit-Min/FA/Lycopene/Lut [Centrum Silver] 1 each PO DAILY 12/06/13 [History] Brimonidine Tartrate [Alphagan P 0.1% Ophth Soln] 1 drop EYEBOTH BID 05/04/16 [History] Digoxin 125 mcg PO DAILY 05/04/16 [History] Enalapril [Vasotec] 5 mg PO BEDTIME 05/04/16 [History] Nitroglycerin [IJP: Nitroglycerin] 1 tab SL ASDIRECTED PRN 05/04/16 [History] SitaGLIPtin [Januvia] 100 mg PO BEDTIME 11/10/19 [History] Alendronate Sodium [Fosamax] 70 mg PO WEEKLY 06/18/20 [History] Insulin Glarg,Human.Rec.Analog [Lantus Solostar] 30 units SUBCUT BEDTIME 06/18/20 [History] Meclizine [Antivert] 1 tab PO TID PRN 06/18/20 [History] Past Medical History HEENT History: Reports: Cataract, Glaucoma Cardiovascular History: Reports: Angina, Bypass, High Cholesterol, Hypertension, Other (See Below) Other Cardiovascular History: SVT SUPRAVENTICULAR TACHYCARDIA Respiratory History: Reports: None Genitourinary History: Reports: Other (See Below) Other Genitourinary History: URINARY FREQUENCY Musculoskeletal History: Reports: Arthritis, Other (See Below) Other Musculoskeletal History: BURSITIS OF HAND LEFT & RIGHT, KNEE BILAT Psychiatric History: Reports: None Endocrine/Metabolic History: Reports: Diabetes, Type II, Hypothyroidism, Osteopenia, Vitamin D Deficiency Hematologic History: Reports: None Immunologic History: Reports: None Oncologic (Cancer) History: Reports: None Dermatologic History: Reports: None - Infectious Disease History Infectious Disease History: Reports: Chicken Pox, Measles, Mumps, Shingles, Other (See Below) Other Infectious Disease History: PINK EYE - Past Surgical History Head Surgeries/Procedures: Reports: None HEENT Surgical History: Reports: Cataract Surgery GI Surgical History: Reports: None Neurological Surgical History: Reports: None Social & Family History - Family History Family Medical History: Noncontributory HEENT: Reports: None Cardiac: Reports: None Respiratory: Reports: COPD, Sleep Apnea GI: Reports: Other (See Below) Other GI Family History: LIVER FAILURE : Reports: None OBGYN: Reports: Musculoskeletal: Reports: Arthritis Neurological: Reports: None Psychiatric: Reports: None Endocrine/Metabolic: Reports: None Hematologic: Reports: None Immunologic: Reports: None Dermatologic: Reports: None Oncologic: Reports: Colon, Esophageal, Liver - Tobacco Use Tobacco Use Status *Q: Never Tobacco User - Caffeine Use Caffeine Use: Reports: Coffee Caffeine Use Comment: AVERAGES 2-3 - Recreational Drug Use Recreational Drug Use: No ED ROS GENERAL - Review of Systems Review Of Systems: See Below Constitutional: Reports: Chills, Weakness. Denies: Fever HEENT: Reports: Sinus Problem (sinus congestion). Denies: Throat Pain Respiratory: Reports: Shortness of Breath, Cough. Denies: Wheezing, Sputum Cardiovascular: Reports: Chest Pain GI/Abdominal: Reports: No Symptoms : Reports: No Symptoms Musculoskeletal: Reports: Muscle Pain (body aches), Muscle Stiffness Skin: Reports: No Symptoms Neurological: Reports: No Symptoms Psychiatric: Reports: No Symptoms ED EXAM, GENERAL - Physical Exam Exam: See Below Exam Limited By: No Limitations General Appearance: Alert, No Apparent Distress Eye Exam: Bilateral Eye: Conjunctival Injection Ears: Normal External Exam, Hearing Grossly Normal Nose: Normal Inspection, Normal Mucosa, No Blood Throat/Mouth: Normal Inspection, Normal Lips, Normal Oropharynx, Normal Voice, No Airway Compromise Head: Atraumatic, Normocephalic Neck: Normal Inspection, Supple Respiratory/Chest: No Respiratory Distress, Lungs Clear, Normal Breath Sounds, No Accessory Muscle Use Cardiovascular: No Murmur, Irregularly Irregular GI/Abdominal: Normal Bowel Sounds, Soft, Non-Tender, No Distention Extremities: Normal Inspection, Pedal Edema (trace) Neurological: Alert, Oriented, Normal Cognition, No Motor/Sensory Deficits Psychiatric: Normal Affect, Normal Mood Skin Exam: Warm, Dry, Intact, Normal Color, No Rash #1 Interpretation EKG Date: 06/18/20 Time: 19:17 Rhythm: A-Fib ST-T: Depressed Comparison: No Change (Compared) Course - Vital Signs Last Recorded V/S: Last Vital Signs Temp 99.2 F 06/18/20 20:15 Pulse 65 06/18/20 20:15 Resp 19 06/18/20 20:15 BP 156/64 H 06/18/20 20:15 Pulse Ox 98 06/18/20 20:15 - Orders/Labs/Meds Orders: Active Orders 24 hr Category Date Time Status Patient Status Manage Transfer [TRANSFER] Routine ADT 06/18/20 21:47 Active CXR [Chest 2V] [CR] Stat Exams 06/18/20 20:24 Taken Resuscitation Status Routine Resus Stat 06/18/20 21:49 Ordered Labs: Laboratory Tests 06/18/20 06/18/20 06/18/20 Range/Units 19:16 19:16 19:23 WBC 6.8 (5.0-10.0) 10^3/uL RBC 3.77 L (4.00-5.50) 10^6/uL Hgb 11.9 L (12.0-16.0) g/dL Hct 37.6 (37.0-47.0) % MCV 99.7 H (82.0-94.0) fL MCH 31.6 (27.0-32.0) pg MCHC 31.6 L (33.0-38.0) g/dL RDW Coeff of Jeff 12.9 (11.0-15.0) % Plt Count 254 (150-400) 10^3/uL Neut % (Auto) 67.2 (35-85) % Lymph % (Auto) 13.1 (10-55) % [place] % (Auto) 18.6 H (0-16) % Eos % (Auto) 0.7 (0-5) % Baso % (Auto) 0.4 (0-3) % Neut # (Auto) 4.57 (1.80-7.00) 10^3/uL Lymph # (Auto) 0.89 L (1.00-4.80) 10^3/uL [place] # (Auto) 1.27 H (0.00-0.80) 10^3/uL Eos # (Auto) 0.05 (0.00-0.45) 10^3/uL Baso # (Auto) 0.03 10^3/uL PT 11.3 (9.7-12.3) SEC INR 1.12 (0.92-1.18) APTT 30.3 (23.2-32.3) SEC D-Dimer, Quantitative 0.68 H (0.00-0.50) Sodium 138 (136-145) mEq/L Potassium 4.1 (3.5-5.0) mEq/L Chloride 100 (98-106) mEq/L Carbon Dioxide 28 (21-32) mmol/L BUN 33 H (7-18) mg/dL Creatinine 2.1 H (0.6-1.0) mg/dL Est Cr Clr Drug Dosing TNP Estimated GFR (MDRD) 23 L (>=60) mL/min Glucose 176 H (75-99) mg/dL Lactic Acid (0.4-2.0) mmol/L Calcium 8.3 L (8.4-10.1) mg/dL Total Bilirubin 0.4 (0.0-1.0) mg/dL AST 12 L (15-37) U/L ALT 17 (12-78) U/L Alkaline Phosphatase 81 (46-116) U/L Lactate Dehydrogenase 162 (100-190) U/L Creatine Kinase 36 (21-215) U/L Troponin I < 0.017 (0.00-0.06) ng/mL C-Reactive Protein 3.1 H (0.2-0.8) mg/dL Total Protein 7.5 (6.4-8.2) g/dL Albumin 3.3 L (3.4-5.0) g/dL SARS CoV-2 RNA Rapid ANIVAL (NEGATIVE) 06/18/20 06/18/20 Range/Units 19:33 19:34 WBC (5.0-10.0) 10^3/uL RBC (4.00-5.50) 10^6/uL Hgb (12.0-16.0) g/dL Hct (37.0-47.0) % MCV (82.0-94.0) fL MCH (27.0-32.0) pg MCHC (33.0-38.0) g/dL RDW Coeff of Jeff (11.0-15.0) % Plt Count (150-400) 10^3/uL Neut % (Auto) (35-85) % Lymph % (Auto) (10-55) % [place] % (Auto) (0-16) % Eos % (Auto) (0-5) % Baso % (Auto) (0-3) % Neut # (Auto) (1.80-7.00) 10^3/uL Lymph # (Auto) (1.00-4.80) 10^3/uL [place] # (Auto) (0.00-0.80) 10^3/uL Eos # (Auto) (0.00-0.45) 10^3/uL Baso # (Auto) 10^3/uL PT (9.7-12.3) SEC INR (0.92-1.18) APTT (23.2-32.3) SEC D-Dimer, Quantitative (0.00-0.50) Sodium (136-145) mEq/L Potassium (3.5-5.0) mEq/L Chloride (98-106) mEq/L Carbon Dioxide (21-32) mmol/L BUN (7-18) mg/dL Creatinine (0.6-1.0) mg/dL Est Cr Clr Drug Dosing Estimated GFR (MDRD) (>=60) mL/min Glucose (75-99) mg/dL Lactic Acid 1.4 (0.4-2.0) mmol/L Calcium (8.4-10.1) mg/dL Total Bilirubin (0.0-1.0) mg/dL AST (15-37) U/L ALT (12-78) U/L Alkaline Phosphatase (46-116) U/L Lactate Dehydrogenase (100-190) U/L Creatine Kinase (21-215) U/L Troponin I (0.00-0.06) ng/mL C-Reactive Protein (0.2-0.8) mg/dL Total Protein (6.4-8.2) g/dL Albumin (3.4-5.0) g/dL SARS CoV-2 RNA Rapid ANIVAL Positive H (NEGATIVE) Departure - Departure Time of Disposition: 21:10 Disposition: Admitted As Inpatient 66 Clinical Impression: COVID-19 - Discharge Information *PRESCRIPTION DRUG MONITORING PROGRAM REVIEWED*: Not Applicable *COPY OF PRESCRIPTION DRUG MONITORING REPORT IN PATIENT LADI: Not Applicable Referrals: Jenna Winkler, [employer]ER [Primary Care Provider] - Forms: ED Department Discharge Sepsis Event Note (ED) - Evaluation Sepsis Screening Result: No Definite Risk - Focused Exam Vital Signs: Vital Signs Temp Pulse Resp BP Pulse Ox 06/18/20 20:15 99.2 F 65 19 156/64 H 98 06/18/20 19:50 81 16 150/60 H 98 06/18/20 19:30 98 F 77 13 163/61 H 96 - Problem List & Annotations (1) COVID-19 SNOMED Code(s): 198513686 Code(s): U07.1 - COVID-19 Status: Acute Current Visit: Yes - My Orders Last 24 Hours: My Active Orders 06/18/20 20:24 CXR [Chest 2V] [CR] Stat 06/18/20 21:47 Patient Status Manage Transfer [TRANSFER] Routine 06/18/20 21:49 Resuscitation Status Routine - Assessment/Plan Admission H&P: Please use this note as an admission H&P Last 24 Hours: My Active Orders 06/18/20 20:24 CXR [Chest 2V] [CR] Stat 06/18/20 21:47 Patient Status Manage Transfer [TRANSFER] Routine 06/18/20 21:49 Resuscitation Status Routine Plan: Consulted with Dr. Waldrop in regards to Kiana's condition and will admit to acute status. Will place on telemetry. Reviewed EKG which did show marked ST abnormality which was present back on prior EKG from this year. Discussed with Kiana her current status with COVID 19 and multiple co-morbidities to include; atrial fibrillation, Type II diabetes. Patient verbalized understanding and wished to be a Code 2 at this time. Will admit to Dr. Waldrop's services in satisfactory condition.
[2020-06-18] MEDS ORDERED: Codeine/Promethazine 10-6.25 MG/5 ML Syrup 5 ML UD Cup PO PRN (22:51)
[2020-06-18] MEDS ORDERED: Docusate Sodium 100 MG Cap PO PRN (22:51)
[2020-06-18] MEDS ORDERED: Sodium Chloride 0.9% 10 ML Syringe FLUSH PRN (22:51)
[2020-06-18] MEDS ORDERED: KETOROLAC EYELF SCH (22:51)
[2020-06-18] MEDS ORDERED: Ibuprofen 200 MG Tab PO PRN (22:51)
[2020-06-18] MEDS ORDERED: Enoxaparin 40 MG/0.4 ML Syringe SUBCUT SCH (22:51)
[2020-06-18] MEDS ORDERED: Nitroglycerin 0.4 MG Tab.SL SL PRN (22:51)
[2020-06-18] MEDS ORDERED: Non-Formulary Medication 1 Each (Exenatide Microspheres [Bydureon Pen] 2 MG) SUBCUT SCH (23:00)
[2020-06-18] MEDS: atorvaSTATin 20 MG Tab PO SCH (23:52)
[2020-06-18] MEDS: Acetaminophen 325 MG Tab PO PRN (23:52)
[2020-06-18] MEDS: Apixaban 5 MG Tab PO SCH (23:53)
[2020-06-18] MEDS: Diltiazem 180 MG Cap.CD PO SCH (23:54)
[2020-06-18] MEDS: Enalapril 5 MG Tab PO SCH (23:54)
[2020-06-19] MEDS ORDERED: Levothyroxine 100 MCG Tab PO SCH (08:00)
[2020-06-19] MEDS ORDERED: prednisoLONE Acetate 1% Ophth Susp 5 ML Bottle EYELF SCH (08:00)
[2020-06-19] MEDS ORDERED: Aspirin 81 MG Tab.Chew PO SCH (08:00)
[2020-06-19] MEDS ORDERED: Moxifloxacin 0.5% Ophth Soln 3 ML Bottle EYELF SCH (08:00)
[2020-06-19] MEDS: Diltiazem 180 MG Cap.CD PO SCH ×2 (08:22→19:52)
[2020-06-19] MEDS: Cholecalciferol (Vitamin D3) 25 MCG Tab PO SCH (08:22)
[2020-06-19] MEDS: Furosemide 40 MG Tab PO SCH (08:23)
[2020-06-19] MEDS: Apixaban 5 MG Tab PO SCH ×2 (08:23→19:52)
[2020-06-19] MEDS: Zinc Sulfate 220 MG Cap PO SCH (08:23)
[2020-06-19] MEDS: Ascorbic Acid 500 MG Tab PO SCH (08:23)
[2020-06-19] MEDS: Digoxin 125 MCG Tab PO SCH (08:24)
[2020-06-19] MEDS: Erythromycin Base 0.5% Ophth Oint 3.5 GM Tube EYEBOTH SCH (08:28)
[2020-06-19] MEDS: atorvaSTATin 20 MG Tab PO SCH (19:51)
[2020-06-19] MEDS: Enalapril 5 MG Tab PO SCH (19:56)
[2020-06-19] MEDS ORDERED: Insulin Glarg,Human.Rec.Analog 100 Unit/ML SUBCUT SCH ×2 (20:00)
[2020-06-19] MEDS: Acetaminophen 325 MG Tab PO PRN (22:04)
--- NOTE | 2020-06-20 07:35 | PCM.PN ---
- General Info Date of Service: 06/19/20 Admission Dx/Problem (Free Text): COVID 19 Subjective Update: Kiana is a 79 yo female who was admitted yesterday secondary to weakness with positive COVID. She states today she is feeling okay. Denies any shortness of breath. Questions how her is doing as he is admitted as well. She states she did have some loose stools this morning. Appetite is good. NO nausea or vomiting. States she doesn't feel she is running a fever. NO chest pain this m orning. Has been up to the bathroom with assistance. - Review of Systems General: Reports: Weakness, Fatigue. Denies: Fever HEENT: Reports: No Symptoms Pulmonary: Reports: Cough. Denies: Shortness of Breath, Sputum Cardiovascular: Reports: No Symptoms Gastrointestinal: Reports: Diarrhea. Denies: Abdominal Pain, Nausea, Vomiting Genitourinary: Reports: No Symptoms Musculoskeletal: Reports: No Symptoms - Patient Data Vitals - Most Recent: Last Vital Signs Temp 98.1 F 06/20/20 04:00 Pulse 55 L 06/20/20 04:00 Resp 18 06/20/20 04:00 BP 108/62 06/20/20 04:00 Pulse Ox 97 06/20/20 04:00 Weight - Most Recent: 152 lb Lab Results Last 24 Hours: Laboratory Results - last 24 hr 06/19/20 06/19/20 06/20/20 Range/Units 05:11 05:11 06:50 WBC 5.3 5.3 (5.0-10.0) 10^3/uL RBC 3.33 L 3.67 L (4.00-5.50) 10^6/uL Hgb 10.3 L 11.4 L (12.0-16.0) g/dL Hct 33.1 L 36.5 L (37.0-47.0) % MCV 99.4 H 99.5 H (82.0-94.0) fL MCH 30.9 31.1 (27.0-32.0) pg MCHC 31.1 L 31.2 L (33.0-38.0) g/dL RDW Coeff of Jeff 12.5 12.7 (11.0-15.0) % Plt Count 219 213 (150-400) 10^3/uL Neut % (Auto) 50.2 (35-85) % Lymph % (Auto) 32.5 (10-55) % [place] % (Auto) 15.6 (0-16) % Eos % (Auto) 1.3 (0-5) % Baso % (Auto) 0.4 (0-3) % Neut # (Auto) 2.68 (1.80-7.00) 10^3/uL Lymph # (Auto) 1.73 (1.00-4.80) 10^3/uL [place] # (Auto) 0.83 H (0.00-0.80) 10^3/uL Eos # (Auto) 0.07 (0.00-0.45) 10^3/uL Baso # (Auto) 0.02 10^3/uL Add Manual Diff Yes Neutrophils % (Manual) 39 (35-85) % Band Neutrophils % 2 (0-5) % Lymphocytes % (Manual) 32 (21-55) % Monocytes % (Manual) 15 H (2-12) % Eosinophils % (Manual) 2 (0-5) % Reactive Lymphocytes Few H (NOT SEEN) Sodium 137 (136-145) mEq/L Potassium 4.5 (3.5-5.0) mEq/L Chloride 103 (98-106) mEq/L Carbon Dioxide 26 (21-32) mmol/L BUN 31 H (7-18) mg/dL Creatinine 2.0 H (0.6-1.0) mg/dL Est Cr Clr Drug Dosing 16.38 mL/min Estimated GFR (MDRD) 24 L (>=60) mL/min Glucose 106 H D (75-99) mg/dL Calcium 7.9 L (8.4-10.1) mg/dL Total Bilirubin 0.4 (0.0-1.0) mg/dL AST 14 L (15-37) U/L ALT 15 (12-78) U/L Alkaline Phosphatase 67 (46-116) U/L C-Reactive Protein 2.3 H (0.2-0.8) mg/dL Total Protein 6.2 L (6.4-8.2) g/dL Albumin 2.8 L (3.4-5.0) g/dL Med Orders - Current: Current Medications Acetaminophen (Tylenol) 650 mg PO Q4H PRN PRN Reason: Pain (Mild 1-3)/fever Last Admin: 06/19/20 22:04 Dose: 650 mg Documented by: Alogliptin Benzoate (Alogliptin) 6.25 mg PO BEDTIME [facility] Last Admin: 06/19/20 19:52 Dose: 6.25 mg Documented by: Apixaban (Eliquis) 2.5 mg PO BID [facility] Last Admin: 06/19/20 19:52 Dose: 2.5 mg Documented by: Ascorbic Acid (Vitamin C) 500 mg PO DAILY [facility] Last Admin: 06/19/20 08:23 Dose: 500 mg Documented by: Atorvastatin Calcium (Lipitor) 80 mg PO BEDTIME [facility] Last Admin: 06/19/20 19:51 Dose: 80 mg Documented by: Cholecalciferol (Vitamin D3) 50 mcg PO DAILY [facility] Last Admin: 06/19/20 08:22 Dose: 50 mcg Documented by: Digoxin (Lanoxin) 125 mcg PO DAILY [facility] Last Admin: 06/19/20 08:24 Dose: Not Given Documented by: Diltiazem HCl (Cardizem Cd) 180 mg PO BID [facility] Last Admin: 06/19/20 19:52 Dose: 180 mg Documented by: Docusate Sodium (Colace) 100 mg PO BID PRN PRN Reason: Constipation Last Admin: 06/18/20 23:52 Dose: 100 mg Documented by: Enalapril Maleate (Vasotec) 5 mg PO BEDTIME [facility] Last Admin: 06/19/20 19:56 Dose: 5 mg Documented by: Erythromycin (Erythromycin 0.5% Ophth Oint) 0 gm EYEBOTH DAILY [facility] Last Admin: 06/19/20 08:28 Dose: 1 applic Documented by: Furosemide (Lasix) 40 mg PO DAILY [facility] Last Admin: 06/19/20 08:23 Dose: 40 mg Documented by: Ibuprofen (Motrin) 400 mg PO Q6H PRN PRN Reason: Pain (mild 1-3) Last Admin: 06/19/20 20:08 Dose: 400 mg Documented by: Insulin Glargine (Lantus) 30 unit SUBCUT BID [facility] Levothyroxine Sodium (Levothyroxine) 150 mcg PO 0700 [facility] Nitroglycerin (Nitrostat) 0.4 mg SL ASDIRECTED PRN PRN Reason: ANGINA Non-Formulary Medication (Brimonidine Tartrate [Alphagan P 0.1% Oph Soln]) 1 drop EYEBOTH BID [facility] Promethazine HCl/Codeine (Phenergan With Codeine) 5 ml PO Q6H PRN PRN Reason: Cough Last Admin: 06/18/20 23:51 Dose: 5 ml Documented by: Sodium Chloride (Saline Flush) 10 ml FLUSH ASDIRECTED PRN PRN Reason: Keep Vein Open Zinc Sulfate (Zincate) 220 mg PO DAILY [facility] Last Admin: 06/19/20 08:23 Dose: 220 mg Documented by: Discontinued Medications Aspirin (Aspirin) 81 mg PO DAILY [facility] Enoxaparin Sodium (Lovenox) 40 mg SUBCUT Q12H [facility] Last Admin: 06/18/20 23:00 Dose: Not Given Documented by: Insulin Glargine (Lantus) 30 unit SUBCUT BEDTIME [facility] Last Admin: 06/19/20 20:25 Dose: 30 unit Documented by: Insulin Glargine (Lantus) 30 unit SUBCUT BEDTIME [facility] Last Admin: 06/19/20 20:26 Dose: Not Given Documented by: Levothyroxine Sodium (Synthroid) 100 mcg PO DAILY [facility] Non-Formulary Medication (Exenatide Microspheres [Bydureon Pen]) 2 mg SUBCUT WEEKLY [facility] - Exam General: Alert, Cooperative, No Acute Distress Lungs: Clear to Auscultation, Normal Respiratory Effort Cardiovascular: Regular Rate, Regular Rhythm GI/Abdominal Exam: Normal Bowel Sounds, Soft, Non-Tender, No Organomegaly, No Distention, No Mass Extremities: Normal Inspection, No Pedal Edema Skin: Warm, Dry, Intact Wound/Incisions: Healing Well Neurological: No New Focal Deficit Psy/Mental Status: Alert, Normal Affect, Normal Mood Sepsis Event Note - Evaluation Sepsis Screening Result: No Definite Risk - Focused Exam Vital Signs: Vital Signs Temp Temp Pulse Resp BP BP Pulse Ox 06/20/20 04:00 98.1 F 55 L 18 108/62 97 06/20/20 00:00 99.1 F 49 L 18 124/46 L 97 06/19/20 21:08 101 F H 06/19/20 21:00 100.4 F 06/19/20 20:08 101.1 F H 06/19/20 20:00 100.7 F H 88 18 148/66 H 96 06/19/20 19:56 128/50 L - Problem List & Annotations (1) COVID-19 SNOMED Code(s): 971482712 Code(s): U07.1 - COVID-19 Status: Acute Current Visit: Yes - Problem List Review Problem List Initiated/Reviewed/Updated: Yes - My Orders Last 24 Hours: My Active Orders 06/19/20 08:00 Ascorbic Acid [Vitamin C] 500 mg PO DAILY Brimonidine Tartrate [Alphagan P 0.1% Ophth Soln] 1 drop EYEBOTH BID Cholecalciferol (Vitamin D3) [Vitamin D3] 50 mcg PO DAILY Digoxin [Lanoxin] 125 mcg PO DAILY Erythromycin Base [Erythromycin 0.5% Ophth Oint] 0 gm EYEBOTH DAILY Furosemide [Lasix] 40 mg PO DAILY Zinc Sulfate [Zincate] 220 mg PO DAILY 06/20/20 06:50 C-REACTIVE PROTEIN [CHEM] AM COMPREHENSIVE METABOLIC PN,CMP [CHEM] AM D-DIMER QUANTITATIVE [COAG] AM 06/20/20 07:00 Levothyroxine 150 mcg PO 0700 06/20/20 08:00 Insulin Glarg,Human.Rec.Analog [LantUS] 30 unit SUBCUT BID 06/21/20 05:11 C-REACTIVE PROTEIN [CHEM] AM CBC WITH AUTO DIFF [HEME] AM COMPREHENSIVE METABOLIC PN,CMP [CHEM] AM D-DIMER QUANTITATIVE [COAG] AM - Plan Plan:: Kiana appears to be doing well this morning. Will continue to closely monitor and repeat laboratory work in the morning. Labs today were stable with no significant changes.
[2020-06-20] MEDS: Zinc Sulfate 220 MG Cap PO SCH (07:57)
[2020-06-20] MEDS: Apixaban 5 MG Tab PO SCH ×2 (07:57→19:53)
[2020-06-20] MEDS: Digoxin 125 MCG Tab PO SCH (07:58)
[2020-06-20] MEDS: Furosemide 40 MG Tab PO SCH (07:58)
[2020-06-20] MEDS: Diltiazem 180 MG Cap.CD PO SCH ×2 (07:58→19:52)
[2020-06-20] MEDS: Cholecalciferol (Vitamin D3) 25 MCG Tab PO SCH (07:58)
[2020-06-20] MEDS: Erythromycin Base 0.5% Ophth Oint 3.5 GM Tube EYEBOTH SCH (07:59)
[2020-06-20] MEDS: Levothyroxine 150 MCG Tab PO SCH (07:59)
[2020-06-20] MEDS: Ascorbic Acid 500 MG Tab PO SCH (07:59)
[2020-06-20] MEDS: Insulin Glarg,Human.Rec.Analog 100 Unit/ML SUBCUT SCH ×2 (08:00→19:54)
[2020-06-20] MEDS: Pantoprazole 40 MG Vial IVPUSH SCH (16:44)
[2020-06-20] MEDS: atorvaSTATin 20 MG Tab PO SCH (19:53)
[2020-06-20] MEDS: Enalapril 5 MG Tab PO SCH (19:53)
[2020-06-20] MEDS: BRIMONIDINE TARTRATE EYEBOTH SCH ×2 (19:58→21:25)
--- NOTE | 2020-06-20 22:54 | PCM.PN ---
- General Info Date of Service: 06/20/20 Admission Dx/Problem (Free Text): COVID 19 Subjective Update: Kiana is a 79 yo female who was admitted yesterday secondary to weakness with positive COVID. She admits to feeling okay today. States loose stools have subsided and had a normal bowel movement this morning. Denies any shortness of breath. States she is feeling better every day. - Review of Systems General: Denies: Fever HEENT: Reports: No Symptoms Pulmonary: Denies: Shortness of Breath, Cough Cardiovascular: Reports: No Symptoms Gastrointestinal: Reports: No Symptoms Genitourinary: Reports: No Symptoms Musculoskeletal: Reports: No Symptoms Skin: Reports: No Symptoms - Patient Data Vitals - Most Recent: Last Vital Signs Temp 98 F 06/20/20 19:51 Pulse 72 06/20/20 19:51 Resp 18 06/20/20 19:51 BP 151/69 H 06/20/20 19:53 Pulse Ox 97 06/20/20 19:51 Weight - Most Recent: 152 lb Lab Results Last 24 Hours: Laboratory Results - last 24 hr 06/20/20 06/20/20 06/20/20 Range/Units 06:50 06:50 06:50 WBC 5.3 (5.0-10.0) 10^3/uL RBC 3.67 L (4.00-5.50) 10^6/uL Hgb 11.4 L (12.0-16.0) g/dL Hct 36.5 L (37.0-47.0) % MCV 99.5 H (82.0-94.0) fL MCH 31.1 (27.0-32.0) pg MCHC 31.2 L (33.0-38.0) g/dL RDW Coeff of Jeff 12.7 (11.0-15.0) % Plt Count 213 (150-400) 10^3/uL Neut % (Auto) 50.2 (35-85) % Lymph % (Auto) 32.5 (10-55) % [place] % (Auto) 15.6 (0-16) % Eos % (Auto) 1.3 (0-5) % Baso % (Auto) 0.4 (0-3) % Neut # (Auto) 2.68 (1.80-7.00) 10^3/uL Lymph # (Auto) 1.73 (1.00-4.80) 10^3/uL [place] # (Auto) 0.83 H (0.00-0.80) 10^3/uL Eos # (Auto) 0.07 (0.00-0.45) 10^3/uL Baso # (Auto) 0.02 10^3/uL D-Dimer, Quantitative 0.69 H (0.00-0.50) Sodium 138 (136-145) mEq/L Potassium 3.8 (3.5-5.0) mEq/L Chloride 103 (98-106) mEq/L Carbon Dioxide 29 (21-32) mmol/L BUN 32 H (7-18) mg/dL Creatinine 2.2 H (0.6-1.0) mg/dL Est Cr Clr Drug Dosing 14.89 mL/min Estimated GFR (MDRD) 22 L (>=60) mL/min Glucose 136 H D (75-99) mg/dL Calcium 8.1 L (8.4-10.1) mg/dL Total Bilirubin 0.2 (0.0-1.0) mg/dL AST 16 (15-37) U/L ALT 16 (12-78) U/L Alkaline Phosphatase 68 (46-116) U/L C-Reactive Protein 2.2 H (0.2-0.8) mg/dL Total Protein 6.2 L (6.4-8.2) g/dL Albumin 2.8 L (3.4-5.0) g/dL Med Orders - Current: Current Medications Acetaminophen (Tylenol) 650 mg PO Q4H PRN PRN Reason: Pain (Mild 1-3)/fever Last Admin: 06/19/20 22:04 Dose: 650 mg Documented by: Alogliptin Benzoate (Alogliptin) 6.25 mg PO BEDTIME [facility] Last Admin: 06/20/20 19:53 Dose: 6.25 mg Documented by: Apixaban (Eliquis) 2.5 mg PO BID [facility] Last Admin: 06/20/20 19:53 Dose: 2.5 mg Documented by: Ascorbic Acid (Vitamin C) 500 mg PO DAILY [facility] Last Admin: 06/20/20 07:59 Dose: 500 mg Documented by: Atorvastatin Calcium (Lipitor) 80 mg PO BEDTIME [facility] Last Admin: 06/20/20 19:53 Dose: 80 mg Documented by: Cholecalciferol (Vitamin D3) 50 mcg PO DAILY [facility] Last Admin: 06/20/20 07:58 Dose: 50 mcg Documented by: Digoxin (Lanoxin) 125 mcg PO DAILY [facility] Last Admin: 06/20/20 07:58 Dose: 125 mcg Documented by: Diltiazem HCl (Cardizem Cd) 180 mg PO BID [facility] Last Admin: 06/20/20 19:52 Dose: 180 mg Documented by: Docusate Sodium (Colace) 100 mg PO BID PRN PRN Reason: Constipation Last Admin: 06/18/20 23:52 Dose: 100 mg Documented by: Enalapril Maleate (Vasotec) 5 mg PO BEDTIME [facility] Last Admin: 06/20/20 19:53 Dose: 5 mg Documented by: Erythromycin (Erythromycin 0.5% Ophth Oint) 0 gm EYEBOTH DAILY [facility] Last Admin: 06/20/20 07:59 Dose: 1 applic Documented by: Furosemide (Lasix) 40 mg PO DAILY [facility] Last Admin: 06/20/20 07:58 Dose: 40 mg Documented by: Ibuprofen (Motrin) 400 mg PO Q6H PRN PRN Reason: Pain (mild 1-3) Last Admin: 06/19/20 20:08 Dose: 400 mg Documented by: Insulin Glargine (Lantus) 30 unit SUBCUT BID [facility] Last Admin: 06/20/20 19:54 Dose: 30 units Documented by: Levothyroxine Sodium (Levothyroxine) 150 mcg PO 0700 [facility] Last Admin: 06/20/20 07:59 Dose: 150 mcg Documented by: Nitroglycerin (Nitrostat) 0.4 mg SL ASDIRECTED PRN PRN Reason: ANGINA Brimonidine Tartrate [Alphagan P 0.2% Ophth Soln] Ptom 0 drop EYEBOTH BID [facility] Last Admin: 06/20/20 21:25 Dose: Not Given Documented by: Pantoprazole Sodium (Protonix Iv) 40 mg IVPUSH Q24H [facility] Last Admin: 06/20/20 16:44 Dose: 40 mg Documented by: Promethazine HCl/Codeine (Phenergan With Codeine) 5 ml PO Q6H PRN PRN Reason: Cough Last Admin: 06/18/20 23:51 Dose: 5 ml Documented by: Sodium Chloride (Saline Flush) 10 ml FLUSH ASDIRECTED PRN PRN Reason: Keep Vein Open Zinc Sulfate (Zincate) 220 mg PO DAILY [facility] Last Admin: 06/20/20 07:57 Dose: 220 mg Documented by: Discontinued Medications Aspirin (Aspirin) 81 mg PO DAILY [facility] Enoxaparin Sodium (Lovenox) 40 mg SUBCUT Q12H [facility] Last Admin: 06/18/20 23:00 Dose: Not Given Documented by: Insulin Glargine (Lantus) 30 unit SUBCUT BEDTIME [facility] Last Admin: 06/19/20 20:25 Dose: 30 unit Documented by: Insulin Glargine (Lantus) 30 unit SUBCUT BEDTIME [facility] Last Admin: 06/19/20 20:26 Dose: Not Given Documented by: Levothyroxine Sodium (Synthroid) 100 mcg PO DAILY [facility] Non-Formulary Medication (Exenatide Microspheres [Bydureon Pen]) 2 mg SUBCUT WEEKLY [facility] - Exam Quality Assessment: No: Supplemental Oxygen, Urine Catheter, Skin Breakdown General: Alert, Oriented Lungs: Clear to Auscultation, Normal Respiratory Effort. No: Crackles, Rales, Rhonchi Cardiovascular: Regular Rate, Irregular Rhythm GI/Abdominal Exam: Normal Bowel Sounds, Soft, No Organomegaly, No Distention, No Mass Extremities: Normal Inspection, Normal Range of Motion, No Pedal Edema Peripheral Pulses: 1+: Dorsalis Pedis (L), Dorsalis Pedis (R) Skin: Warm, Dry, Intact Neurological: No New Focal Deficit Psy/Mental Status: Alert, Normal Affect, Normal Mood Sepsis Event Note - Evaluation Sepsis Screening Result: No Definite Risk - Focused Exam Vital Signs: Vital Signs Temp Pulse Resp BP BP Pulse Ox 06/20/20 19:53 151/69 H 06/20/20 19:51 98 F 72 18 151/69 H 97 06/20/20 16:00 98.2 F 75 20 153/61 H 99 06/20/20 12:00 98.1 F 67 20 130/50 L 98 - Problem List & Annotations (1) COVID-19 SNOMED Code(s): 806759713 Code(s): U07.1 - COVID-19 Status: Acute Current Visit: Yes - Problem List Review Problem List Initiated/Reviewed/Updated: Yes - My Orders Last 24 Hours: My Active Orders 06/20/20 07:00 Levothyroxine 150 mcg PO 0700 06/20/20 08:00 Insulin Glarg,Human.Rec.Analog [LantUS] 30 unit SUBCUT BID 06/20/20 17:00 Pantoprazole [ProTONIX IV] 40 mg IVPUSH Q24H 06/20/20 20:00 Brimonidine Tartrate [Alphagan P 0.1% Ophth Soln] 0 drop EYEBOTH BID 06/21/20 05:11 C-REACTIVE PROTEIN [CHEM] AM CBC WITH AUTO DIFF [HEME] AM COMPREHENSIVE METABOLIC PN,CMP [CHEM] AM D-DIMER QUANTITATIVE [COAG] AM - Plan Plan:: Kiana appears to be progressing daily. Will continue to closely monitor and repeat laboratory work in the morning. Labs today were stable with no significant changes.
[2020-06-21] MEDS: Erythromycin Base 0.5% Ophth Oint 3.5 GM Tube EYEBOTH SCH (07:49)
[2020-06-21] MEDS: Cholecalciferol (Vitamin D3) 25 MCG Tab PO SCH (07:51)
[2020-06-21] MEDS: Digoxin 125 MCG Tab PO SCH (07:51)
[2020-06-21] MEDS: Diltiazem 180 MG Cap.CD PO SCH ×2 (07:52→19:34)
[2020-06-21] MEDS: Levothyroxine 150 MCG Tab PO SCH (07:52)
[2020-06-21] MEDS: Zinc Sulfate 220 MG Cap PO SCH (07:53)
[2020-06-21] MEDS: Ascorbic Acid 500 MG Tab PO SCH (07:53)
[2020-06-21] MEDS: Furosemide 40 MG Tab PO SCH (07:53)
[2020-06-21] MEDS: Apixaban 5 MG Tab PO SCH ×2 (07:53→19:34)
[2020-06-21] MEDS: BRIMONIDINE TARTRATE EYEBOTH SCH ×2 (07:54→19:34)
[2020-06-21] MEDS: Insulin Glarg,Human.Rec.Analog 100 Unit/ML SUBCUT SCH ×2 (07:56→19:37)
--- NOTE | 2020-06-21 09:39 | PCM.PN ---
- General Info Date of Service: 06/21/20 Admission Dx/Problem (Free Text): COVID 19 Subjective Update: Kiana is a 79 yo female who was admitted secondary to weakness with positive COVID. She admits to feeling a little worse today. States she has been coughing up a lot of phlegm and states it is clear. States she feels weaker today and just doesn't have a lot of energy. Functional Status: Reports: Tolerating Diet (decreased appetite today) - Review of Systems General: Reports: Weakness, Fatigue HEENT: Reports: No Symptoms Pulmonary: Reports: Cough, Sputum. Denies: Shortness of Breath Cardiovascular: Reports: No Symptoms Gastrointestinal: Reports: No Symptoms. Denies: Diarrhea Genitourinary: Reports: No Symptoms Musculoskeletal: Reports: No Symptoms Neurological: Reports: No Symptoms Psychiatric: Reports: No Symptoms - Patient Data Vitals - Most Recent: Last Vital Signs Temp 98.2 F 06/21/20 04:00 Pulse 78 06/21/20 07:51 Resp 18 06/21/20 00:00 BP 132/56 L 06/21/20 00:00 Pulse Ox 96 06/21/20 00:00 Weight - Most Recent: 152 lb Lab Results Last 24 Hours: Laboratory Results - last 24 hr 06/21/20 06/21/20 06/21/20 Range/Units 06:55 06:55 06:55 WBC 6.5 (5.0-10.0) 10^3/uL RBC 3.68 L (4.00-5.50) 10^6/uL Hgb 11.6 L (12.0-16.0) g/dL Hct 36.2 L (37.0-47.0) % MCV 98.4 H (82.0-94.0) fL MCH 31.5 (27.0-32.0) pg MCHC 32.0 L (33.0-38.0) g/dL RDW Coeff of Jeff 12.6 (11.0-15.0) % Plt Count 231 (150-400) 10^3/uL Neut % (Auto) 63.5 (35-85) % Lymph % (Auto) 24.7 (10-55) % [place] % (Auto) 9.7 (0-16) % Eos % (Auto) 1.8 (0-5) % Baso % (Auto) 0.3 (0-3) % Neut # (Auto) 4.12 (1.80-7.00) 10^3/uL Lymph # (Auto) 1.60 (1.00-4.80) 10^3/uL [place] # (Auto) 0.63 (0.00-0.80) 10^3/uL Eos # (Auto) 0.12 (0.00-0.45) 10^3/uL Baso # (Auto) 0.02 10^3/uL D-Dimer, Quantitative 0.70 H (0.00-0.50) Sodium 137 (136-145) mEq/L Potassium 4.1 (3.5-5.0) mEq/L Chloride 101 (98-106) mEq/L Carbon Dioxide 29 (21-32) mmol/L BUN 30 H (7-18) mg/dL Creatinine 1.9 H (0.6-1.0) mg/dL Est Cr Clr Drug Dosing 17.24 mL/min Estimated GFR (MDRD) 26 L (>=60) mL/min Glucose 120 H (75-99) mg/dL Calcium 9.3 (8.4-10.1) mg/dL Total Bilirubin 0.2 (0.0-1.0) mg/dL AST 14 L (15-37) U/L ALT 18 (12-78) U/L Alkaline Phosphatase 71 (46-116) U/L C-Reactive Protein 1.7 H (0.2-0.8) mg/dL Total Protein 6.7 (6.4-8.2) g/dL Albumin 3.0 L (3.4-5.0) g/dL Med Orders - Current: Current Medications Acetaminophen (Tylenol) 650 mg PO Q4H PRN PRN Reason: Pain (Mild 1-3)/fever Last Admin: 06/19/20 22:04 Dose: 650 mg Documented by: Alogliptin Benzoate (Alogliptin) 6.25 mg PO BEDTIME [facility] Last Admin: 06/20/20 19:53 Dose: 6.25 mg Documented by: Apixaban (Eliquis) 2.5 mg PO BID [facility] Last Admin: 06/21/20 07:53 Dose: 2.5 mg Documented by: Ascorbic Acid (Vitamin C) 500 mg PO DAILY [facility] Last Admin: 06/21/20 07:53 Dose: 500 mg Documented by: Atorvastatin Calcium (Lipitor) 80 mg PO BEDTIME [facility] Last Admin: 06/20/20 19:53 Dose: 80 mg Documented by: Cholecalciferol (Vitamin D3) 50 mcg PO DAILY [facility] Last Admin: 06/21/20 07:51 Dose: 50 mcg Documented by: Digoxin (Lanoxin) 125 mcg PO DAILY [facility] Last Admin: 06/21/20 07:51 Dose: 125 mcg Documented by: Diltiazem HCl (Cardizem Cd) 180 mg PO BID [facility] Last Admin: 06/21/20 07:52 Dose: 180 mg Documented by: Docusate Sodium (Colace) 100 mg PO BID PRN PRN Reason: Constipation Last Admin: 06/18/20 23:52 Dose: 100 mg Documented by: Enalapril Maleate (Vasotec) 5 mg PO BEDTIME [facility] Last Admin: 06/20/20 19:53 Dose: 5 mg Documented by: Erythromycin (Erythromycin 0.5% Ophth Oint) 0 gm EYEBOTH DAILY [facility] Last Admin: 06/21/20 07:49 Dose: 1 applic Documented by: Furosemide (Lasix) 40 mg PO DAILY [facility] Last Admin: 06/21/20 07:53 Dose: 40 mg Documented by: Ibuprofen (Motrin) 400 mg PO Q6H PRN PRN Reason: Pain (mild 1-3) Last Admin: 06/19/20 20:08 Dose: 400 mg Documented by: Insulin Glargine (Lantus) 30 unit SUBCUT BID [facility] Last Admin: 06/21/20 07:56 Dose: 30 units Documented by: Levothyroxine Sodium (Levothyroxine) 150 mcg PO 0700 [facility] Last Admin: 06/21/20 07:52 Dose: 150 mcg Documented by: Nitroglycerin (Nitrostat) 0.4 mg SL ASDIRECTED PRN PRN Reason: ANGINA Brimonidine Tartrate [Alphagan P 0.2% Ophth Soln] Ptom 0 drop EYEBOTH BID [facility] Last Admin: 06/21/20 07:54 Dose: Not Given Documented by: Pantoprazole Sodium (Protonix Iv) 40 mg IVPUSH Q24H [facility] Last Admin: 06/20/20 16:44 Dose: 40 mg Documented by: Promethazine HCl/Codeine (Phenergan With Codeine) 5 ml PO Q6H PRN PRN Reason: Cough Last Admin: 06/18/20 23:51 Dose: 5 ml Documented by: Sodium Chloride (Saline Flush) 10 ml FLUSH ASDIRECTED PRN PRN Reason: Keep Vein Open Zinc Sulfate (Zincate) 220 mg PO DAILY [facility] Last Admin: 06/21/20 07:53 Dose: 220 mg Documented by: Discontinued Medications Aspirin (Aspirin) 81 mg PO DAILY [facility] Enoxaparin Sodium (Lovenox) 40 mg SUBCUT Q12H [facility] Last Admin: 06/18/20 23:00 Dose: Not Given Documented by: Insulin Glargine (Lantus) 30 unit SUBCUT BEDTIME [facility] Last Admin: 06/19/20 20:25 Dose: 30 unit Documented by: Insulin Glargine (Lantus) 30 unit SUBCUT BEDTIME [facility] Last Admin: 06/19/20 20:26 Dose: Not Given Documented by: Levothyroxine Sodium (Synthroid) 100 mcg PO DAILY [facility] Non-Formulary Medication (Exenatide Microspheres [Bydureon Pen]) 2 mg SUBCUT WEEKLY [facility] - Exam Quality Assessment: No: Supplemental Oxygen General: Alert, Oriented, Cooperative, No Acute Distress Neck: Supple Lungs: Crackles (bases) Cardiovascular: Regular Rate, No Murmurs, Irregular Rhythm GI/Abdominal Exam: Normal Bowel Sounds, Soft, Non-Tender Extremities: Normal Inspection, Non-Tender, Pedal Edema (trace bilaterally) Skin: Warm, Dry, Intact Psy/Mental Status: Alert, Normal Affect, Normal Mood Sepsis Event Note - Evaluation Sepsis Screening Result: No Definite Risk - Focused Exam Vital Signs: Vital Signs Temp Pulse Pulse Resp BP Pulse Ox 06/21/20 07:51 78 06/21/20 04:00 98.2 F 75 06/21/20 00:00 99 F 70 18 132/56 L 96 - Problem List & Annotations (1) COVID-19 SNOMED Code(s): 401915173 Code(s): U07.1 - COVID-19 Status: Acute Current Visit: Yes (2) Weakness generalized SNOMED Code(s): 13700421 Code(s): R53.1 - WEAKNESS Status: Acute Current Visit: Yes (3) Productive cough SNOMED Code(s): 92012477, 999327474, 452742926 Code(s): R05 - COUGH Status: Acute Current Visit: Yes - Problem List Review Problem List Initiated/Reviewed/Updated: Yes - My Orders Last 24 Hours: My Active Orders 06/20/20 17:00 Pantoprazole [ProTONIX IV] 40 mg IVPUSH Q24H 06/20/20 20:00 Brimonidine Tartrate [Alphagan P 0.1% Ophth Soln] 0 drop EYEBOTH BID 06/21/20 09:13 Incentive Spirometry [RT Incentive Spirometry] [RC] ASDIRECTED - Plan Plan:: Will continue to closely monitor and repeat laboratory work in the morning. Labs today were stable with no significant changes. Will start incentive spirometry and attempt to obtain sputum culture. Consulted with Dr. Waldrop and reviewed all laboratory findings. Recommends to continue to monitor at this time.
[2020-06-21] MEDS: Pantoprazole 40 MG Vial IVPUSH SCH (16:57)
[2020-06-21] MEDS: atorvaSTATin 20 MG Tab PO SCH (19:34)
[2020-06-21] MEDS: Enalapril 5 MG Tab PO SCH (19:35)
[2020-06-21] MEDS: Acetaminophen 325 MG Tab PO PRN (21:58)
[2020-06-22] MEDS: Levothyroxine 150 MCG Tab PO SCH (06:10)
[2020-06-22] MEDS: Diltiazem 180 MG Cap.CD PO SCH (08:06)
[2020-06-22] MEDS: Zinc Sulfate 220 MG Cap PO SCH (08:06)
[2020-06-22] MEDS: Digoxin 125 MCG Tab PO SCH (08:06)
[2020-06-22] MEDS: Ascorbic Acid 500 MG Tab PO SCH (08:08)
[2020-06-22] MEDS: Cholecalciferol (Vitamin D3) 25 MCG Tab PO SCH (08:08)
[2020-06-22] MEDS: Furosemide 40 MG Tab PO SCH (08:08)
[2020-06-22] MEDS: Apixaban 5 MG Tab PO SCH (08:08)
[2020-06-22] MEDS: Erythromycin Base 0.5% Ophth Oint 3.5 GM Tube EYEBOTH SCH (08:10)
[2020-06-22] MEDS: BRIMONIDINE TARTRATE EYEBOTH SCH (08:11)
[2020-06-22] MEDS: Insulin Glarg,Human.Rec.Analog 100 Unit/ML SUBCUT SCH (08:11)
[2020-06-22 12:33] VITALS: BP 130/45; PULSE 79
--- NOTE | 2020-06-22 13:10 | PCM.DCSUM1 ---
Discharge Summary - Hospital Course Free Text/Narrative:: Patient presented to ER with with complaints of chest pain on and off for 3 days. Had developed a cough and body aches. Had been getting weaker. also having same symptoms and seen in the ER as well. Did test positive for COVID. Due to weakness, comorbidities and being unable to care for her due to himself having COVID, was admitted to hospital. Diagnosis: Stroke: No Modified [place] Scale: No Symptoms at All Modified [place] Scale Score: 0 - Discharge Data Discharge Date: 06/22/20 Discharge Disposition: Home, Self-Care 01 Condition: Good - Referral to Home Health Primary Care Physician: Jenna Winkler NP - Discharge Diagnosis/Problem(s) (1) COVID-19 SNOMED Code(s): 961302730 ICD Code: U07.1 - COVID-19 Status: Acute Priority: High Current Visit: Yes (2) Weakness generalized SNOMED Code(s): 71952054 ICD Code: R53.1 - WEAKNESS Status: Acute Priority: High Current Visit: Yes - Patient Summary/Data Complications: none Hospital Course: patient is doing well. She does still feel fatigue. Has no body aches. Has no shortness of breath. Afebrile. Oxygen sats are greater than 94% on room air. Has tolerated COVID well. Eating and drinking well. Patient does typically have as caregiver but daughter will take over care at home until able to do so as she herself has already had COVID as well. Labs have remained stable. discharge home with usual meds, home health. - Patient Instructions Diet: Usual Diet as Tolerated Activity: As Tolerated - Discharge Plan *PRESCRIPTION DRUG MONITORING PROGRAM REVIEWED*: Not Applicable *COPY OF PRESCRIPTION DRUG MONITORING REPORT IN PATIENT LADI: Not Applicable Home Medications: Home Meds Cholecalciferol (Vitamin D3) [D3-2000] 2,000 unit PO DAILY 07/24/13 [History] atorvaSTATin [Lipitor] 80 mg PO BEDTIME 07/24/13 [History] dilTIAZem HCl [Diltiazem 24Hr ER (Cd)] 180 mg PO BID 07/24/13 [History] Multivit-Min/FA/Lycopene/Lut [Centrum Silver] 1 each PO DAILY 12/06/13 [History] Brimonidine Tartrate [Alphagan P 0.1% Ophth Soln] 1 drop EYEBOTH BID 05/04/16 [History] Digoxin 125 mcg PO DAILY 05/04/16 [History] Enalapril [Vasotec] 5 mg PO BEDTIME 05/04/16 [History] Nitroglycerin [IJP: Nitroglycerin] 1 tab SL ASDIRECTED PRN 05/04/16 [History] SitaGLIPtin [Januvia] 50 mg PO BEDTIME 11/10/19 [History] Alendronate Sodium [Fosamax] 70 mg PO WEEKLY 06/18/20 [History] Apixaban [Eliquis] 2.5 mg PO BID 06/18/20 [History] Erythromycin Base [Erythromycin 0.5% Ophth Oint] 1 applic EYEBOTH DAILY 06/18/20 [History] Exenatide Microspheres [Bydureon Pen] 2 mg SUBCUT WEEKLY 06/18/20 [History] Fish Oil/DHA/EPA [Fish Oil 1,200 MG] 1,200 mg PO DAILY 06/18/20 [History] Furosemide 40 mg PO DAILY 06/18/20 [History] Insulin Glarg,Human.Rec.Analog [Lantus Solostar] 30 units SUBCUT BEDTIME 06/18/20 [History] Meclizine [Antivert] 1 tab PO TID PRN 06/18/20 [History] Levothyroxine Sodium [Synthroid] 150 mcg PO ACBREAKFAST 06/19/20 [History] Forms: ED Department Discharge Referrals: Jenna Winkler [employer] [Primary Care Provider] - (Hospital follow up in 10 days with Jenna) - Discharge Summary/Plan Comment DC Time >30 min.: No - General Info Date of Service: 06/22/20 Admission Dx/Problem (Free Text: COVID 19 Functional Status: Reports: Pain Controlled, Tolerating Diet, Ambulating, Urinating - Review of Systems General: Reports: Weakness, Fatigue, Malaise HEENT: Reports: No Symptoms Pulmonary: Denies: Shortness of Breath, Cough Cardiovascular: Denies: Chest Pain, Edema, Lightheadedness Gastrointestinal: Denies: Nausea, Vomiting Genitourinary: Reports: No Symptoms Musculoskeletal: Reports: No Symptoms Skin: Reports: No Symptoms Neurological: Reports: Weakness - Patient Data Vitals - Most Recent: Last Vital Signs Temp 97.9 F 06/22/20 12:00 Pulse 79 06/22/20 12:00 Resp 20 06/22/20 12:00 BP 130/45 L 06/22/20 12:00 Pulse Ox 97 06/22/20 12:00 Weight - Most Recent: 152 lb MICK Results - Last 24 hrs: Microbiology 06/21/20 20:00 Gram Stain - Final Sputum - Expectorated Med Orders - Current: Current Medications Acetaminophen (Tylenol) 650 mg PO Q4H PRN PRN Reason: Pain (Mild 1-3)/fever Last Admin: 06/21/20 21:58 Dose: 650 mg Documented by: Alogliptin Benzoate (Alogliptin) 6.25 mg PO BEDTIME [facility] Last Admin: 06/21/20 19:32 Dose: 6.25 mg Documented by: Apixaban (Eliquis) 2.5 mg PO BID [facility] Last Admin: 06/22/20 08:08 Dose: 2.5 mg Documented by: Ascorbic Acid (Vitamin C) 500 mg PO DAILY [facility] Last Admin: 06/22/20 08:08 Dose: 500 mg Documented by: Atorvastatin Calcium (Lipitor) 80 mg PO BEDTIME [facility] Last Admin: 06/21/20 19:34 Dose: 80 mg Documented by: Cholecalciferol (Vitamin D3) 50 mcg PO DAILY [facility] Last Admin: 06/22/20 08:08 Dose: 50 mcg Documented by: Digoxin (Lanoxin) 125 mcg PO DAILY [facility] Last Admin: 06/22/20 08:06 Dose: 125 mcg Documented by: Diltiazem HCl (Cardizem Cd) 180 mg PO BID [facility] Last Admin: 06/22/20 08:06 Dose: 180 mg Documented by: Docusate Sodium (Colace) 100 mg PO BID PRN PRN Reason: Constipation Last Admin: 06/18/20 23:52 Dose: 100 mg Documented by: Enalapril Maleate (Vasotec) 5 mg PO BEDTIME [facility] Last Admin: 06/21/20 19:35 Dose: 5 mg Documented by: Erythromycin (Erythromycin 0.5% Ophth Oint) 0 gm EYEBOTH DAILY [facility] Last Admin: 06/22/20 08:10 Dose: 1 applic Documented by: Furosemide (Lasix) 40 mg PO DAILY [facility] Last Admin: 06/22/20 08:08 Dose: 40 mg Documented by: Ibuprofen (Motrin) 400 mg PO Q6H PRN PRN Reason: Pain (mild 1-3) Last Admin: 06/19/20 20:08 Dose: 400 mg Documented by: Insulin Glargine (Lantus) 30 unit SUBCUT BID [facility] Last Admin: 06/22/20 08:11 Dose: 30 units Documented by: Levothyroxine Sodium (Levothyroxine) 150 mcg PO 0700 [facility] Last Admin: 06/22/20 06:10 Dose: 150 mcg Documented by: Nitroglycerin (Nitrostat) 0.4 mg SL ASDIRECTED PRN PRN Reason: ANGINA Brimonidine Tartrate [Alphagan P 0.2% Ophth Soln] Ptom 0 drop EYEBOTH BID [facility] Last Admin: 06/22/20 08:11 Dose: Not Given Documented by: Pantoprazole Sodium (Protonix Iv) 40 mg IVPUSH Q24H [facility] Last Admin: 06/21/20 16:57 Dose: 40 mg Documented by: Promethazine HCl/Codeine (Phenergan With Codeine) 5 ml PO Q6H PRN PRN Reason: Cough Last Admin: 06/18/20 23:51 Dose: 5 ml Documented by: Sodium Chloride (Saline Flush) 10 ml FLUSH ASDIRECTED PRN PRN Reason: Keep Vein Open Zinc Sulfate (Zincate) 220 mg PO DAILY [facility] Last Admin: 06/22/20 08:06 Dose: 220 mg Documented by: Discontinued Medications Aspirin (Aspirin) 81 mg PO DAILY [facility] Enoxaparin Sodium (Lovenox) 40 mg SUBCUT Q12H [facility] Last Admin: 06/18/20 23:00 Dose: Not Given Documented by: Insulin Glargine (Lantus) 30 unit SUBCUT BEDTIME [facility] Last Admin: 06/19/20 20:25 Dose: 30 unit Documented by: Insulin Glargine (Lantus) 30 unit SUBCUT BEDTIME [facility] Last Admin: 06/19/20 20:26 Dose: Not Given Documented by: Levothyroxine Sodium (Synthroid) 100 mcg PO DAILY [facility] Non-Formulary Medication (Exenatide Microspheres [Bydureon Pen]) 2 mg SUBCUT WEEKLY [facility] - Exam General: Reports: Alert, Oriented HEENT: Reports: Mucous Membr. Moist/[place] Neck: Reports: Supple Lungs: Reports: Clear to Auscultation, Normal Respiratory Effort Cardiovascular: Reports: Irregular Rhythm GI/Abdominal Exam: Normal Bowel Sounds, Soft, Non-Tender Extremities: Normal Inspection, No Pedal Edema Skin: Reports: Warm, Dry Neurological: Reports: No New Focal Deficit
== END 2020-06-22 14:15 | disposition home health service (06) | DRG 179 ==
LOC: CC.ED 19:14 → CC.MS 21:47 → UNDOADMIN 22:28 → CC.MS 22:28
PROVIDERS: ADMIT Physician Assistant Medical; ATTEND Family Medicine
DX: U07.1 COVID-19 (principal); H40.9 Unspecified glaucoma; E78.00 Pure hypercholesterolemia, unspecified; I10 Essential (primary) hypertension; M19.90 Unspecified osteoarthritis, unspecified site; E11.9 Type 2 diabetes mellitus without complications; E03.9 Hypothyroidism, unspecified; M85.80 Other specified disorders of bone density and structure, unspecified site; Z88.8 Allergy status to other drugs, medicaments and biological substances; E55.9 Vitamin D deficiency, unspecified; I48.91 Unspecified atrial fibrillation; Z95.1 Presence of aortocoronary bypass graft; Z98.49 Cataract extraction status, unspecified eye; Z88.0 Allergy status to penicillin; Z88.6 Allergy status to analgesic agent; Z79.890 Hormone replacement therapy; Z79.899 Other long term (current) drug therapy; Z79.4 Long term (current) use of insulin
CPT/HCPCS: 36415; 71046; 80053; 82550; 83605; 83615; 84484; 85025; 85379; 85610; 85730; 86140; 87070; 87205; 93010; 99285-25; A9270-GY; C9113; J1815-GY; U0002

== ENCOUNTER 2021-01-03 12:55 | Inpatient (IN) | payer MEDICARE, OTHER ==
[2021-01-03] MEDS ORDERED: Ondansetron 4 MG/2 ML SDV IV PRN (13:37)
[2021-01-03] MEDS ORDERED: Acetaminophen 325 MG Tab PO PRN (13:37)
[2021-01-03] MEDS ORDERED: Sodium Chloride 0.9% 1,000 ML IV SCH (13:45)
[2021-01-03] MEDS ORDERED: cefTRIAXone 1 GM Vial IVPUSH SCH (14:00)
[2021-01-03 14:28] LABS: CHLORIDE,CL 108 mEq/L (98-106); SODIUM,NA 146 mEq/L (136-145)
[2021-01-03 16:29] VITALS: BP 118/51
== END 2021-01-03 16:43 | DRG 690 ==
LOC: CC.FCMC 12:55 → UNDOADMIN 13:31 → CC.MS 13:31
PROVIDERS: ADMIT Nurse Practitioner Family; ATTEND Family Medicine
DX: N39.0 Urinary tract infection, site not specified (principal); Z20.822 Contact with and (suspected) exposure to COVID-19; Z88.0 Allergy status to penicillin; Z88.8 Allergy status to other drugs, medicaments and biological substances; Z98.42 Cataract extraction status, left eye; Z98.41 Cataract extraction status, right eye; Z90.89 Acquired absence of other organs; R53.1 Weakness; Z98.890 Other specified postprocedural states; Z95.1 Presence of aortocoronary bypass graft; I48.91 Unspecified atrial fibrillation; N18.30 Chronic kidney disease, stage 3 unspecified
CPT/HCPCS: 36415; 71046; 74176; 80053; 80162; 81003; 84484; 85025; 86140; 87045; 87046; 87493; 93005; J0696; J7030; U0002